=== PATIENT | female | born 1940 | race Caucasian/White ===

== ENCOUNTER 2018-08-29 01:37 | Inpatient (IN) ==
--- OUTSIDE RECORDS SUMMARY | 2018-08-29 01:40 | External Medical Summary | Continuity of Care Document ---
:1940 Author Name Mc Coats Address Unavailable Unavailable , Care Team Providers Name Role Phone Unavailable Unavailable Unavailable GEISE, W Unavailable Unavailable Problems Active medical history not documented Allergies and Adverse Reactions No Known Drug Allergies (Allergy) Medications Medications not documented Procedures Procedures not documented Immunizations Immunizations not documented Plan of Treatment Planned Observations Planned Goals not documented Results No Known Results Results not documented
[2018-08-29] MEDS ORDERED: ALBUT/IPRATROP 3MG/0.5MG NEB 3 ML VIAL NEB ONE (01:48)
[2018-08-29 02:49] LABS: Basophils # (auto) 0.05 K/uL (0-0.2); Basophils % (auto) 0.6 %; Eosinophils # (auto) 0.09 K/uL (0-0.5); Eosinophils % (auto) 1.1 %; Hematocrit (blood only) 40.2 % (37-47); Hemoglobin 13.7 g/dL (12.0-16.0); Immature Granulocytes # (auto) 0.02 K/uL (0.00-0.02); Immature Granulocytes % (auto) 0.2 %; Lymphocytes # (auto) 1.34 K/uL (1.2-3.4); Lymphocytes % (auto) 16.2 %; Mean Corpuscular Hgb Conc 34.1 g/dL (32-36); Mean Corpuscular Volume 89.3 fL (80-100); Mean Platelet Volume 10.8 fL (7.4-10.4); Monocytes # (auto) 0.67 K/uL (0.11-0.59); Monocytes % (auto) 8.1 %; Neutrophils # (auto) 6.12 K/uL (1.4-6.5); Neutrophils % (auto) 73.8 %; Platelet Count 219 K/uL (130-400); RDW Coefficient of Variation 12.6 % (11.5-14.5); RDW Standard Deviation 40.8 fL (36.4-46.3); White Blood Count 8.29 K/uL (4.8-10.8)
[2018-08-29 03:04] LABS: BUN Creatinine Ratio 38.4 (10-20); Blood Urea Nitrogen 20 mg/dl (7-18); Calcium 9.4 mg/dl (8.5-10.1); Carbon Dioxide 31 mmol/L (21-32); Chloride 96 mmol/L (98-107); Creatinine Clr Calc Pharmacy 72.5 ml/min; Est GFR (African American) 105.4; Est GFR (Non-African American) 90.9; Glucose 128 mg/dl (70-99); Magnesium 2.3 mg/dl (1.8-2.4); Potassium 3.6 mmol/L (3.5-5.1); Sodium 133 mmol/L (136-145)
[2018-08-29 03:09] LABS: NT Pro B Type Natriuretic Pept 57 pg/ml (0-1800); Troponin I < 0.015 ng/ml (0-0.045)
[2018-08-29] MEDS ORDERED: LEVOFLOXACIN/D5W 750 MG/150 ML BAG IV STA (03:13)
--- NOTE | 2018-08-29 05:46 | Emergency Department Note ---
Entered by Bigg Jiménez acting as a scribe for ED Provider Note Name: Leslie Mayo Age: 78, female Arrives Via: EMS Informant: Adalid, nurse CC: SOB HPI: The patient is a 78 year old female who presents to the emergency department with complaints of constant SOB beginning this morning. 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 She states that the patient became SOB while in bed this morning. She notes that the patient was suctioned before she went to bed, and she reports that it was thick. She reports that the patient does not use oxygen at home. Per nurse, the patient received a nebulizer treatment and albuterol treatment en route to the emergency department. Per niece, the patient has not had a fever, CP, and vomiting. She states that the patient does not have a history of pneumonia and she notes that the patient is not on any antibiotics. ROS: See above HPI for pertinent positives & negatives. A total of 10 systems reviewed and were otherwise negative. Past Medical History: ALS Past Surgical History: None Family History: No significant family history Social History: Nonverbal, lives with family Home Medications: Hydrochlorothiazide, levothyroxine, Zoloft Allergies: None Physical: Vitals: BP 129/62, Pulse 104 H, Resp 22, Temp 97.7 F, O2 Sat 94, Delivery Nasal Cannula, Flow Rate 3L/min Exam: GENERAL: Patient chronically unwell appearing and in moderate distress. EYES: No scleral icterus, unremarkable pupils. ENT: Mucous membranes moist, no nasal congestion. NECK: No masses appreciated, no meningismus, trachea is midline. RESPIRATORY: No wheeze, no rhonchi. Dyspneic/tachypneic with diffuse crackles in all lung matias. CARDIOVASCULAR: Regular rate and rhythm. No murmurs, rubs, gallops appreciated. GASTROINTESTINAL: Abdomen soft, non-tender, no peritonitis. Bowel sounds positive. No masses appreciated. Feeding tube in mid abdomen. BACK: No midline tenderness, no CVA tenderness EXTREMITIES: Normal motion all extremities, no cyanosis, no edema. NEUROLOGIC: Awake, answers questions via Ipad, no focal weakness, cranial nerves grossly intact. SKIN: No rash, no jaundice, no diaphoresis. ED Course: Prior Medical Record, Triage/Nursing Notes, Medications, Allergies reviewed by Me Ba: The patient was evaluated in room B5. A complete history and physical exam was performed. 0332: Upon reevaluation, the patient is stable. I discussed the findings and the treatment plan with the patient. She expresses agreement and understanding. I spoke with Dr. Rome of the [facility]. The patient will be evaluated for further management. 0345: I rechecked the patient. She still has junky breath sounds. She is requiring oxygen. Vital Signs: reviewed and remarkable for hypoxia, tachy Labs: Reviewed and remarkable for wnl Interventions: saline lock, duoneb x 1 hour, levaquin 750mg iv Imaging: Chest X-ray: X ray results are stated below per my interpretation: Chest: 1 view: Questionable retrocardiac infiltrate, no effusion, normal cardiac border. EKG: EKG results per my interpretation. Indication - SOB. Normal sinus, 89, no ectopy, questionable lateral ST depression, poor baseline due to tremor Consults: 033: I reviewed the patient's case with Dr. Rome - Hospitalist, [facility]. He will evaluate the patient for further management. Blood pressure: Normal. No Referral necessary Disposition: Hospitalization Differentials: Infections, reactive airway disease, COPD, pneumonia, pleural effusion, pulmonary edema, ARDS, pneumothorax, CHF, cardiac ischemia, cardiac tamponade, dysrhythmia, anemia, pulmonary embolism, musculoskeletal, gastrointestinal process, as well as others were entertained. Medical Decision Makin yr old female with ALS who appears to be high risk aspiration arrives with hypoxia, very poor lung sounds. Neb given to help with possible mucous plugging and I'll note breathing is much improved. Hold on steroids. CXR with possible retrocardiac infiltrate and will treat with abx despite normal wbc and no temp. She has no calf swelling and no history clots thus will hold on CT PE given other findings. Sats still requiring NC O2. She will need to come in for further management. Impression: Hypoxia, aspiration pneumonia Tulio Cronin MD The scribe's documentation has been prepared under my direction and personally reviewed by me in its entirety. I confirm that the note above accurately re flects all work, treatment, procedures, and medical decision making performed by me. Impression & Plan Hypoxia, Aspiration pneumonia Past Med/Surg History Medical History ALS (amyotrophic lateral sclerosis) Family History Other No significant family history Social History Communication Ability: Unable Current Living Situation: Family Feels Safe at Home: Yes Smoking Status: Former smoker Results & Data Vital Signs Vital Signs - 24 hr 08/29/18 01:47 08/29/18 02:01 08/29/18 02:42 Temperature 36.5 C 36.5 C Temperature Source Oral Oral Sepsis Recent Fever Within 48 Hours No Sepsis New/Unexplained Change in Mental Status No Sepsis Action Taken by Nursing No Action Required Pulse Rate 89 Pulse Rate [Right Finger] 91 H 99 H Pulse Rhythm Regular Pulse Strength Normal Respiratory Rate 24 24 22 Respiratory Effort / Characteristics Spontaneous Grunting Labored Short of Breath Spontaneous Short of Breath Respiratory Depth Normal Respiratory Pattern Grunting Blood Pressure 182/112 H Blood Pressure [Right Arm] 156/61 H Blood Pressure Mean 135 Blood Pressure Mean [Right Arm] 92 Blood Pressure Position [Right Arm] Sitting Pulse Oximetry 93 90 96 Oxygen Delivery Method Nasal Cannula Nasal Cannula Nebulizer Oxygen Flow Rate 3 3 08/29/18 03:33 08/29/18 04:00 08/29/18 05:01 Temperature 36.7 C Temperature Source Oral Sepsis Recent Fever Within 48 Hours Sepsis New/Unexplained Change in Mental Status Sepsis Action Taken by Nursing Pulse Rate Pulse Rate [Right Finger] 104 H 118 H 115 H Pulse Rhythm Pulse Strength Respiratory Rate 22 25 H 24 Respiratory Effort / Characteristics Respiratory Depth Respiratory Pattern Blood Pressure Blood Pressure [Right Arm] 129/62 138/75 122/57 L Blood Pressure Mean Blood Pressure Mean [Right Arm] 84 96 78 Blood Pressure Position [Right Arm] Sitting Sitting Pulse Oximetry 94 93 96 Oxygen Delivery Method Nasal Cannula Nasal Cannula Nasal Cannula Oxygen Flow Rate 3 3 3 Home Medications Current Medication List: was personally reviewed by me Laboratory Data Attestation: I reviewed the patient's lab results. Result diagrams: 08/29/18 02:37 08/29/18 02:37 Lab Results 08/29/18 08/29/18 08/29/18 Range/Units 02:37 02:37 02:37 WBC 8.29 (4.8-10.8) K/uL RBC 4.50 (4.2-5.4) M/uL Hgb 13.7 (12.0-16.0) g/dL Hct 40.2 (37-47) % MCV 89.3 (80-100) fL MCH 30.4 (25-34) pg MCHC 34.1 (32-36) g/dL RDW Std Deviation 40.8 (36.4-46.3) fL RDW Coeff of Gato 12.6 (11.5-14.5) % Plt Count 219 (130-400) K/uL MPV 10.8 H (7.4-10.4) fL Immature Gran % (Auto) 0.2 % Neut % (Auto) 73.8 % Lymph % (Auto) 16.2 % [place] % (Auto) 8.1 % Eos % (Auto) 1.1 % Baso % (Auto) 0.6 % Immature Gran # (Auto) 0.02 (0.00-0.02) K/uL Neut # (Auto) 6.12 (1.4-6.5) K/uL Lymph # (Auto) 1.34 (1.2-3.4) K/uL [place] # (Auto) 0.67 H (0.11-0.59) K/uL Eos # (Auto) 0.09 (0-0.5) K/uL Baso # (Auto) 0.05 (0-0.2) K/uL Sodium 133 L (136-145) mmol/L Potassium 3.6 (3.5-5.1) mmol/L Chloride 96 L (98-107) mmol/L Carbon Dioxide 31 (21-32) mmol/L Anion Gap 6.0 (3-11) BUN 20 H (7-18) mg/dl Creatinine 0.53 L (0.6-1.2) mg/dl Est Cr Clr Drug Dosing 72.5 ml/min Est GFR ( Amer) 105.4 Est GFR (Non-Af Amer) 90.9 BUN/Creatinine Ratio 38.4 H (10-20) Glucose 128 H (70-99) mg/dl Lactate 1.0 (0.4-2.0) mmol/L Calcium 9.4 (8.5-10.1) mg/dl Magnesium 2.3 (1.8-2.4) mg/dl Troponin I < 0.015 (0-0.045) ng/ml NT-Pro-B Natriuret Pep 57 (0-1800) pg/ml Administered Medications Discontinued Medications Albuterol (Duoneb) 12 ml NEB ONE ONE Stop: 08/29/18 01:49 Last Admin: 08/29/18 01:58 Dose: 12 ml Documented by: [id number] Levofloxacin/Dextrose (Levaquin/D5w) 750 mg in 150 mls @ 100 mls/hr IV NOW STA Stop: 08/29/18 04:42 Last Infusion: 08/29/18 05:02 Dose: 0 mls/hr Documented by: [id number] Admin: 08/29/18 03:29 Dose: 100 mls/hr Documented by: [id number] Discharge Plan Visit Data Chief Complaint: Shortness of Breath/Dyspnea Stated Complaint: SHORT OF BREATH ED Provider: Tulio Cronin Discharge Problem: Hypoxia, Aspiration pneumonia Patient Disposition: Being Evaluated by Hospitalist Forms Stand Alone Forms: My [facility] Prescriptions Prescriptions: No Action hydrochlorothiazide 25 mg Tablet 25 mg feeding tube DAILY RF: 0 Nutren 1.5 0.07 gram-1.5 kcal/mL Liquid 1 ea feeding tube UD RF: 0 Zoloft 25 mg 25 mg PEG DAILY RF: 0 levothyroxine 137 mcg 137 mcg PEG DAILY RF: 0 Referrals Referrals: Shala Porras [place] [Primary Care Provider] - Discharge Problem: Aspiration pneumonia Qualifiers: Aspiration pneumonia type: unspecified Laterality: left Lung location: lower lobe of lung Qualified Code(s): J69.0 - Pneumonitis due to inhalation of food and vomit The scribe's documentation has been prepared under my direction and personally reviewed by me in its entirety. I confirm that the note above accurately reflects all work, treatment, procedures, and medical decision making performed by me.
--- NOTE | 2018-08-29 06:33 | XRay Report ---
XR chest 1V portable CLINICAL HISTORY: Shortness of breath COMPARISON STUDY: 01/29/2012 FINDINGS: The heart is normal in size. There is subtle elevation of the interstitium. Likely diagnost ic considerations include subtle interstitial edema versus interstitial inflammatory process. Clinica l and radiographic follow-up is recommended. There are no significant pleural effusions. There is no lobar consolidation.[ IMPRESSION: Subtle elevation interstitium. Likely diagnostic considerations include subtle interstiti al edema versus an interstitial inflammatory process. Clinical and radiographic follow-up is recommen ded. Electronically signed by: Jimenez Garvin M.D. 08/29/2018 6:32 AM
[2018-08-29] MEDS ORDERED: LEVALBUTEROL 1.25MG/0.5ML NEB INH PRN (06:51)
[2018-08-29] MEDS ORDERED: SODIUM CHLORIDE 0.9% 1000ML 1,000 ML IV SCH (06:51)
[2018-08-29] MEDS ORDERED: IPRATROPIUM BROMIDE NEB SOLN 0.02% 2.5 ML VIAL INH PRN (06:51)
[2018-08-29] MEDS ORDERED: ACETAMINOPHEN SOL 650 MG/20.3 ML UDC PEG PRN (06:51)
[2018-08-29] MEDS ORDERED: XOPENEX/ATROVENT 1.25mg/0.5MG NEB COMBO NEB PRN (06:51)
[2018-08-29] MEDS ORDERED: NITROGLYCERIN SL 0.4 MG/TAB TAB SL PRN (06:51)
[2018-08-29] MEDS ORDERED: ONDANSETRON INJ 2 MG/ML 2 ML VIAL IV PRN (06:51)
[2018-08-29] MEDS ORDERED: CONSULT PHARMACY STA (06:51)
[2018-08-29] MEDS ORDERED: AMPICILLIN/SULBACTAM CONSULT ACTIVE PRN (06:54)
[2018-08-29 07:54] LABS: Prothrombin Time 9.9 Seconds (9.0-12.0)
[2018-08-29] MEDS ORDERED: OPTIRAY 320 125ml IV PRN (08:22)
--- NOTE | 2018-08-29 08:38 | CT Scan Report ---
CT angio chest PE protocol CT DOSE: 329.81 mGy.cm HISTORY: 78 years-old Female with rule out PE and mucous plugging. Acute shortness of breath TECHNIQUE: Multiple CTA images of the chest were obtained after the intravenous administration of 118 ml Optiray 320. Coronal and sagittal MIPS were obtained from the axial data set and were submitted for review. All measurements were obtained according to NASCET criteria. A dose lowering technique w as utilized adhering to the principles of ALARA. COMPARISON: Chest radiograph 08/29/2018 FINDINGS: CTA: Mild multichamber cardiac enlargement. No pericardial effusion. Coronary arterial calcifications are noted. Calcifications of the aortic annulus. No thoracic aortic aneurysm or dissection. Moderate mixe d plaque formation of the thoracic aorta with patency of the imaged great vessels. The pulmonary shady rial tree is opacified to level of the segmental branches. The distal segmental and subsegmental bran ches are not well seen secondary to respiratory motion artifact. No focal filling defects identified to suggest pulmonary thromboembolic disease. CT CHEST: No focal thyroid nodule or adenopathy by CT size criteria. No definite pneumothorax or pleural effusi on. Biapical pleural-parenchymal scarring. Subsegmental consolidation of the lateral segment right mi ddle lobe, inferior segment lingula and posterior basal segment left lower lobe and to a lesser exten t within the medial basal segment of the right lower lobe. Respiratory motion artifact limits evaluat ion of the lung parenchyma. No overt pulmonary edema identified. Linear subsegmental atelectasis of t he superior segment lingula and superior segment right lower lobe. There are a few scattered 2-3 mm s olid nodules noted bilaterally which are likely benign. Mild bilateral mucus plugging. Central airway s appear to be patent. Small hiatal hernia. Mild thickening of the adrenal glands suggestive of hyperplasia. No acute proces s of the imaged upper abdomen. Soft tissues are unremarkable. Bones appear to be intact. Degenerative changes of the shoulders and spine. IMPRESSION: 1. Study limited secondary to respiratory motion. No definite evidence of pulmonary thromboembolic di sease. 2. Mild mucous plugging with bibasilar subsegmental consolidation suggestive of probable atelectasis. Pneumonia considered less likely. Correlate clinically. 3. Mild cardiomegaly without overt pulmonary edema or pleural effusion. 4. Small hiatal hernia. The above report was generated using voice recognition software. It may contain grammatical, syntax o r spelling errors. Electronically signed by: Greg Wagoner M.D. 08/29/2018 8:37 AM
[2018-08-29] MEDS: SERTRALINE HCL 50 MG TABLET PEG SCH (08:39)
[2018-08-29] MEDS: hydroCHLOROthiazide 25 MG TAB PEG SCH (08:39)
[2018-08-29] MEDS: LEVOTHYROXINE SODIUM 137 MCG TABLET PO SCH (08:39)
[2018-08-29] MEDS: AMPICILLIN/SULBACTAM SOD 1,500 MG in 0.9 % SODIUM CHLORIDE 100 ML IV SCH ×2 (08:40→13:54)
[2018-08-29] MEDS ORDERED: IPRATROPIUM BROMIDE NEB SOLN 0.02% 2.5 ML VIAL INH SCH (09:00)
[2018-08-29] MEDS ORDERED: XOPENEX/ATROVENT 1.25mg/0.5MG NEB COMBO NEB SCH (09:00)
[2018-08-29] MEDS ORDERED: LEVALBUTEROL 1.25MG/0.5ML NEB INH SCH (09:00)
--- NOTE | 2018-08-29 09:01 | History and Physical Report ---
DATE OF ADMISSION: 08/29/2018 CHIEF COMPLAINT: Shortness of breath. HISTORY OF PRESENT ILLNESS: This is a 78-year-old female, [facility] resident, history of ALS, diagnosed about a year ago, status post PEG tube, nonverbal, takes all the medications and tube feeding via the PEG tube, history of hypothyroidism, history of depression, ambulatory dysfunction, presents with shortness of breath. The patient was brought in because she was short of breath. The patient does suction herself everyday. She is getting a lot of suction lately. She was worried about that she might have had some obstruction in the lungs. She is nonverbal, but she uses the IPad for communication and her niece is in the room who is the power of criminal defense attorney. The patient received an hour-long neb treatment in the ER and she is saturating okay on 3 liters. She does not use oxygen at home. Denies any fever, chills. No headache, no dizziness, no blurred visions, no earache, no sore throat, no nausea, no abdominal pain. Normal bowel and bladder movements. No swelling in the legs. No rash. Ambulates with a walker. In the ER, later when she was suctioned, there was some blood in the suctions, but her mouth cavity looked okay. Hemodynamics were stable. ALLERGIES: COREG. PAST MEDICAL HISTORY: As mentioned above. PAST SURGICAL HISTORY: Carpal tunnel surgery and finger surgery, right ankle surgery, partial removal of the eye fluid in the left side, cataract surgery bilaterally, reversed upper eyelid bilateral, laparoscopic hernia repair, status post PEG tube placement. MEDICATIONS: The patient is on hydrochlorothiazide 25 mg p.o. daily, Zoloft 25 mg p.o. daily, levothyroxine 137 mcg daily. Once in a while, she uses a scopolamine patch. Hydrochlorothiazide 25 mg p.o. daily. FAMILY HISTORY: Significant for brother had cancer, diabetes. Mother has diabetes, heart disorder, hypertension. Father had stroke, hypertension. Sister has diabetes. SOCIAL HISTORY: Currently living at [facility], former smoker, quit in 2007, smoked average quarter pack a day for 15 years. No alcohol use, no drug use. REVIEW OF SYMPTOMS: As per HPI. Rest of review of systems is negative. PHYSICAL EXAMINATION: GENERAL: The patient is older and frail, not in acute distress. VITAL SIGNS: Temperature 36.5, pulse 100, respiratory rate 20, blood pressure 113/75, oxygen 93% on 3 liters. HEENT: No pallor, no icterus. Pupils equal, round, and reactive to light. Oral mucosa dry. NECK: No JVD, no neck masses, no carotid bruits. CARDIOVASCULAR: S1, S2 heard. Tachycardia. No murmur, no gallop. RESPIRATORY SYSTEM: Normal AP diameter. No accessory muscle use. No wheezing, no crackles. ABDOMEN: Soft, bowel sounds present. Nontender. No distention. PEG tube site clean. CENTRAL NERVOUS SYSTEM: Nonverbal. Moves extremities. Alert and awake, and obeys simple commands. EXTREMITIES: No edema, no erythema. LABORATORIES: WBC 8.2, hemoglobin 13.7, hematocrit 40.2, platelets 219. Sodium 133, potassium 3.6, chloride 96, bicarbonate 31, BUN 20, creatinine 0.5, serum glucose 128. Lactic acid 1, calcium 9.4, magnesium 2.3. Troponin less than 0.015. BNP 57. Chest x-ray: No acute findings seen. EKG, poor quality, but normal sinus rhythm, rate of 89, nonspecific ST-T abnormalities seen. ASSESSMENT AND PLAN: This is a 78-year-old female who presents with shortness of breath, possible aspiration versus mucus plugging. 1. Shortness of breath, hypoxemic, requiring oxygen. Does not need oxygen at home. Chest x-ray unremarkable. Exam looks benign, but the patient has lot of secretions. questionable aspiration( On tube feeds) versus mild mucus plugging. We will get a CT of the chest. Also blood in secretions frequently, we will follow the CAT scan. Empirically started on IV Unasyn and doxycycline. Follow the cultures. We will also consult pulmonary for further recommendations. 2. History of ALS, dysphagia, nonverbal, muscle weakness, Diagnosed about a year ago. Ambulates with help of a walker. Status post PEG tube. We will consult the nutrition to help with PEG tube feedings. 3. Hypothyroidism, on Synthroid. 4. Depression, on Zoloft. 5. Hypertension, on hydrochlorothiazide. 6. Deep venous thrombosis prophylaxis, SCDs for now. 7. Disposition: Admit to med/surg tele. Level 1 code status. The patient does not want CPR or shocks, but okay with intubation if there is a chance of recovery. PT and OT prior to discharge. Social Service to help with discharge planning. The patient is [facility] resident. [facility]
[2018-08-29 09:31] LABS: Appearance Urine Clear (Clear); Bilirubin Urine Negative (Negative); Blood Urine Negative (Negative); Color Urine Yellow; Glucose Urine UA Negative (Negative); Ketones Urine Negative (Negative); Leukocyte Esterase Urine Negative (Negative); Nitrite Urine Negative (Negative); Protein Urine Negative (Negative); Specific Gravity Urine > 1.045 (1.000-1.030); Urobilinogen Urine Negative (Negative)
[2018-08-29] MEDS: DOXYCYCLINE HYCLATE 100 MG in DEXTROSE 5% 100 ML IV SCH ×2 (09:57→20:58)
[2018-08-29] MEDS: HEPARIN SOD 5,000 UNIT/0.5 ML VIAL SQ SCH ×2 (10:04→21:00)
[2018-08-29] MEDS ORDERED: NUTREN PEG SCH (12:00)
[2018-08-29] MEDS: NUTREN PEG SCH ×3 (12:18→21:00)
--- NOTE | 2018-08-29 13:18 | Pulmonary Consultation ---
Date of Consultation August 29, 2018 Assessment & Plan (1) ALS (amyotrophic lateral sclerosis): Present on Admission?: Yes (2) Atelectasis: The CAT scan of the chest showed atelectatic changes in the right middle lobe and lingula. One cannot entirely exclude pneumonia but it looks more like atelectasis. The patient obviously has difficulty clearing secretions. This is significantly related to her underlying neuromuscular disease. I believe she would benefit from nebulizer treatment 3-4 times per day. In light of the fact her heart rates have been mildly elevated, suggest using levo albuterol 0.63 dosage. Would also suggest using guaifenesin liquid to try and thin her secretions somewhat. She is on antibiotic therapy in the form of ampicillin sulbactam and doxycycline. I believe this is reasonable as we cannot entirely exclude an infection. The patient indicated she does not want intubation or CPR. It is expected that her respiratory symptoms may well progress in the near future due to the progression of her disease itself. Present on Admission?: Yes History of Present Illness Attending Physician: Segun Whalen MD History of Present Illness Pulmonary consultation is requested regarding shortness of breath. She is a 78-year-old female with a history of ALS. This was diagnosed in November 2017, but the patient had some symptoms for about 2 years prior to this until the diagnosis was made she currently lives in [facility]. The patient chronic ally has mild shortness of breath but it became much worse she states late last evening it seemed to be quite abrupt to her. She felt like she had mucus that she could not clear. She felt that it was her saliva. The mucus she does get out she states is thick. At [facility] she has a Yankauer catheter that she utilizes herself to suction mucus. She was unable to get the mucus out that was bothering her. Her mucus is beige in color. She is not coughed up any blood. Apparently nursing was unable to clear her as well. She was brought to the emergency room and a number of interventions were undertaken. She was given a nebulizer treatment and a dose of levofloxacin 750 mg. She states she is feeling somewhat better but still short of breath. She has had no chest pains. The patient's ALS mainly has affected the bulbar area. She has been unable to speak or swallow. She has a PEG tube in place since November 2017. She utilizes an iPad type of device to communicate with people. She is weaker in the upper extremities than she is in the lower extremities. She is able to walk somewhat still. It could well be that she has marked difficulty swallowing her own saliva. This may be part of her problem. She denies any nausea or vomiting. She has not had any problems with her feedings that she is aware of. Allergies Allergy/AdvReac Type Severity Reaction Status Date / Time No Known Allergies Allergy Unverified 08/29/18 03:18 Home Medications Home Medications Medication Instructions Recorded Confirmed Type Zoloft 25 mg PEG DAILY 08/29/18 08/29/18 History hydrochlorothiazide 25 mg FEEDING TUBE DAILY 08/29/18 08/29/18 History levothyroxine 137 mcg PEG DAILY 08/29/18 08/29/18 History nutritional supplements [Nutren 1 ea FEEDING TUBE UD 08/29/18 08/29/18 History 1.5] Patient History Medical History Hypothyroidism Hypertension ALS (amyotrophic lateral sclerosis) Surgical History PEG (percutaneous endoscopic gastrostomy) status PEG tube in place Ankle fracture Cataract Bilateral surgery with lens implant H/O hernia repair History of tonsillectomy and adenoidectomy Family History Other No significant family history Social History Preferred Language: Polish Communication Ability: Effective Communication Ability Comment: Patient nonverbal but cognitively intact. Communication Tools: IPad Beliefs That Will Affect Care: None Current Living Situation: Personal Care Facility Current Living Situation Comment: [facility] Other Information That Helps Us Care for You: No Feels Safe at Home: Yes Safety Concerns: Feels Safe At This Time Smoking Status: Former smoker Tobacco Type: cigarettes Age Started Using Tobacco: 26 Age Quit Using Tobacco: 68 Cigarettes Per Day: 3 cigarettes/day Number of Years Since Quit: 10 Hx Alcohol Use: Yes (A few beers per week) Hx Substance Use: No Review of Systems Review of Systems: All systems reviewed & are unremarkable except as noted in HPI & below Physical Exam Physical Exam: The patient is a 78-year-old female who was cooperative alert, and oriented. She was in no distress. Patient is nonverbal. Weight is 59.5 kg per Eye exam showed implants bilaterally. Pupils were reactive to light. Nares were clear. Nasal cannula oxygen in place. Mouth exam shows dry mucous m embranes. Pharynx is a Mallampati grade 1. Palpation of the neck reveals no lymph nodes or masses. The cardiac rate was increased to 110/min. The rhythm was regular. Blood pressure 123/73. The chest was of normal development but diminished excursions. Respiratory rate was 18 breaths/min. There were some accessory muscles utilized when the patient was requested to take deep breaths. The breath sounds are diminished at both lung bases. Oxygen saturation was 98% on 3 L nasal cannula. Abdomen is soft. Bowel sounds normal. There is a PEG tube in place. There was no tenderness to palpation, masses, or organomegaly. Extremities showed no cyanosis clubbing or edema. Results & Data Vital Signs (Past 12 Hours) Vital Signs Temp Pulse Pulse Resp BP BP Pulse Ox 08/29/18 11:00 36.4 C L 109 H 18 123/73 98 08/29/18 08:00 113 H 08/29/18 07:39 103 H 16 98 08/29/18 07:00 36.2 C L 115 H 18 110/69 95 08/29/18 06:48 36.0 C L 112 H 20 137/56 L 96 08/29/18 06:24 109 H 25 H 117/54 L 97 08/29/18 05:30 106 H 21 123/52 L 96 08/29/18 05:01 36.7 C 115 H 24 122/57 L 96 08/29/18 04:00 118 H 25 H 138/75 93 08/29/18 03:33 104 H 22 129/62 94 08/29/18 02:42 36.5 C 99 H 22 156/61 H 96 08/29/18 02:01 91 H 24 90 08/29/18 01:47 36.5 C 89 24 182/112 H 93 Laboratory Results Abnormal lab results 08/29/18 08/29/18 08/29/18 Range/Units 02:37 02:37 09:20 MPV 10.8 H (7.4-10.4) fL [place] # (Auto) 0.67 H (0.11-0.59) K/uL Sodium 133 L (136-145) mmol/L Chloride 96 L (98-107) mmol/L BUN 20 H (7-18) mg/dl Creatinine 0.53 L (0.6-1.2) mg/dl BUN/Creatinine Ratio 38.4 H (10-20) Glucose 128 H (70-99) mg/dl Ur Specific [place] > 1.045 H (1.000-1.030) 08/29/18 02:37 08/29/18 02:37 Pro time is 9.9 with INR 1.0 Diagnostic Findings XR chest 1V portable CLINICAL HISTORY: Shortness of breath COMPARISON STUDY: 01/29/2012 FINDINGS: The heart is normal in size. There is subtle elevation of the interstitium. Likely diagnostic considerations include subtle interstitial edema versus interstitial inflammatory process. Clinical and radiographic follow-up is recommended. There are no significant pleural effusions. There is no lobar consolidation.[ IMPRESSION: Subtle elevation interstitium. Likely diagnostic considerations include subtle interstitial edema versus an interstitial inflammatory process. Clinical and radiographic follow-up is recommended. Electronically signed by: Jimenez Garvin M.D. 08/29/2018 6:[address] angio chest PE protocol CT DOSE: 329.81 mGy.cm HISTORY: 78 years-old Female with rule out PE and mucous plugging. Acute shortness of breath TECHNIQUE: Multiple CTA images of the chest were obtained after the intravenous administration of 118 ml Optiray 320. Coronal and sagittal MIPS were obtained from the axial data set and were submitted for review. All measurements were obtained according to NASCET criteria. A dose lowering technique was utilized adhering to the principles of ALARA. COMPARISON: Chest radiograph 08/29/2018 FINDINGS: CTA: Mild multichamber cardiac enlargement. No pericardial effusion. Coronary arterial calcifications are noted. Calcifications of the aortic annulus. No thoracic aortic aneurysm or dissection. Moderate mixed plaque formation of the t horacic aorta with patency of the imaged great vessels. The pulmonary arterial tree is opacified to level of the segmental branches. The distal segmental and subsegmental branches are not well seen secondary to respiratory motion artifact. No focal filling defects identified to suggest pulmonary thr omboembolic disease. CT CHEST: No focal thyroid nodule or adenopathy by CT size criteria. No definite pneumothorax or pleural effusion. Biapical pleural-parenchymal scarring. Subsegmental consolidation of the lateral segment right middle lobe, inferior segment lingula and posterior basal segment left lower lobe and to a lesser extent within the medial basal segment of the right lower lobe. Respiratory motion artifact limits evaluation of the lung parenchyma. No overt pulmonary edema identified. Linear subsegmental atelectasis of the superior segment lingula and superior segment right lower lobe. There are a few scattered 2-3 mm solid nodules noted bilaterally which are likely benign. Mild bilateral mucus plugging. Central airways appear to be patent. Small hiatal hernia. Mild thickening of the adrenal glands suggestive of hyperplasia. No acute process of the imaged upper abdomen. Soft tissues are unremarkable. Bones appear to be intact. Degenerative changes of the shoulders and spine. IMPRESSION: 1. Study limited secondary to respiratory motion. No definite evidence of pulmon oksana thromboembolic disease. 2. Mild mucous plugging with bibasilar subsegmental consolidation suggestive of probable atelectasis. Pneumonia considered less likely. Correlate clinically. 3. Mild cardiomegaly without overt pulmonary edema or pleural effusion. 4. Small hiatal hernia. The above report was generated using voice recognition software. It may contain grammatical, syntax or spelling errors. Electronically signed by: Greg Wagoner M.D. 08/29/2018 8:37 AM
[2018-08-29] MEDS: LEVALBUTEROL HCL 0.63 MG/3 ML NEB NEB SCH ×2 (14:09→19:42)
--- NOTE | 2018-08-29 18:12 | Hospitalist Progress Note ---
Date of Service August 29, 2018 Assessment & Plan (1) ALS (amyotrophic lateral sclerosis): -dysphagia, nonverbal, communicates with hand gestures and computer tablet device -nutrition via PEG tube -muscle weakness, at personal longterm she ambulates with help of a walker Shortness of breath and hypoxemic on admission secondary to ALS and problems of clearing oral secretions Mild mucous plugging with bibasilar subsegmental consolidation suggestive of probable atelectasis -initially on nasal cannula oxygen on admission -supplemental oxygen down titrated off to room -As per pulmonary service, CT scan of the chest showed atelectatic changes in the right middle lobe and lingula; One cannot entirely exclude pneumonia but it looks more like atelectasis. -will switch patient from ampicillin sulbactam and doxycycline to ceftriaxone and doxycycline -follow admission blood cultures -Levoalbuterol 0.63 q6 hours as per pulmonary service to help as bronchodilator and minimize tachycardia -will try flutter valve to help with mucous plugging -patient uses Yankauer suction on her own, will have respiratory/nursing staff assist her with suctioning -chest discomfort likely due to oral secretions in throat, will repeat troponin and EKG but unlikely that patient is having cardiac event Hypertension -on hydrochlorothiazide. Hypothyroidism -on Synthroid. Depression - on Zoloft. Deep venous thrombosis prophylaxis, SCDs for now. Code Status: Do Not Resuscitate/Do Not Intubate as per patient and her niece Brenda [phone] Subjective I have seen and examined the patient several times today. Patient's tachycardia improved over course of the day. No excessive secretions coming out of mouth. Patient did indicate feel some discomfort in her throat at times and some chest discomfort. she expresses this with hand gestures and writing on computer tablet. she does not appear to be in acute distress Physical Exam Constitutional: WD/WN, vitals as above Eyes: PERRL, conjunctivae normal, anicteric sclerae ENMT: external ear and nose normal, oropharynx normal Cardiovascular: Rate/Rhythm: regular rate and regular rhythm Gastrointestinal (Abdomen): normal bowel sounds, soft, nontender, no hepatosplenomegaly (tube feeding) Musculoskeletal: Head/Neck/Chest: normocephalic and head atraumatic Neurologic: patient able to use hands to type on tablet, no facial asymetry Psychiatric: Orientation: alert and cooperative Results & Data Vital Signs (Past 12 Hours) Vital Signs Temp Pulse Pulse Resp BP BP Pulse Ox 08/29/18 17:37 99 H 126/56 L 92 08/29/18 14:09 92 H 18 92 08/29/18 13:49 91 08/29/18 11:00 36.4 C L 109 H 18 123/73 98 08/29/18 08:00 113 H 08/29/18 07:39 103 H 16 98 08/29/18 07:00 36.2 C L 115 H 18 110/69 95 08/29/18 06:48 36.0 C L 112 H 20 137/56 L 96 08/29/18 06:24 109 H 25 H 117/54 L 97
[2018-08-29 18:42] LABS: Alanine Aminotransferase 26 U/L (12-78); Albumin Level 3.4 gm/dl (3.4-5.0); Aspartate Aminotransferase 21 U/L (15-37); BUN Creatinine Ratio 24.9 (10-20); Blood Urea Nitrogen 17 mg/dl (7-18); Calcium 9.4 mg/dl (8.5-10.1); Carbon Dioxide 29 mmol/L (21-32); Chloride 95 mmol/L (98-107); Creatinine Clr Calc Pharmacy 57.3 ml/min; Est GFR (African American) 97.6; Est GFR (Non-African American) 84.2; Glucose 142 mg/dl (70-99); Potassium 3.6 mmol/L (3.5-5.1); Sodium 132 mmol/L (136-145)
[2018-08-29 18:47] LABS: Alkaline Phosphatase 93 U/L (45-117); Bilirubin,Total 0.5 mg/dl (0.2-1); Globulin 3.6 gm/dl (2.5-4.0); Troponin I < 0.015 ng/ml (0-0.045)
[2018-08-29] MEDS ORDERED: cefTRIAXone SODIUM 1,000 MG in DEXTROSE 5% 50 ML IV ONE (19:00)
[2018-08-29] MEDS ORDERED: AMPICILLIN/SULBACTAM SOD 3,000 MG in 0.9 % SODIUM CHLORIDE 100 ML IV SCH (20:00)
[2018-08-30] MEDS: LEVALBUTEROL HCL 0.63 MG/3 ML NEB NEB SCH ×4 (02:09→19:52)
[2018-08-30 05:50] LABS: Basophils # (auto) 0.03 K/uL (0-0.2); Basophils % (auto) 0.1 %; Eosinophils # (auto) 0.02 K/uL (0-0.5); Eosinophils % (auto) 0.1 %; Hematocrit (blood only) 38.4 % (37-47); Hemoglobin 12.9 g/dL (12.0-16.0); Immature Granulocytes # (auto) 0.09 K/uL (0.00-0.02); Immature Granulocytes % (auto) 0.4 %; Lymphocytes # (auto) 1.09 K/uL (1.2-3.4); Lymphocytes % (auto) 5.2 %; Mean Corpuscular Hgb Conc 33.6 g/dL (32-36); Mean Corpuscular Volume 90.1 fL (80-100); Mean Platelet Volume 10.7 fL (7.4-10.4); Monocytes # (auto) 1.61 K/uL (0.11-0.59); Monocytes % (auto) 7.6 %; Neutrophils # (auto) 18.32 K/uL (1.4-6.5); Neutrophils % (auto) 86.6 %; Platelet Count 192 K/uL (130-400); RDW Standard Deviation 42.3 fL (36.4-46.3); Red Blood Count 4.26 M/uL (4.2-5.4); White Blood Count 21.16 K/uL (4.8-10.8)
[2018-08-30 06:15] LABS: BUN Creatinine Ratio 27.6 (10-20); Calcium 9.2 mg/dl (8.5-10.1); Creatinine Clr Calc Pharmacy 73.9 ml/min; Est GFR (African American) 106.1; Est GFR (Non-African American) 91.5; Magnesium 2.3 mg/dl (1.8-2.4); Potassium 3.6 mmol/L (3.5-5.1)
[2018-08-30] MEDS: cefTRIAXone SODIUM 1,000 MG in DEXTROSE 5% 50 ML IV SCH (07:58)
[2018-08-30] MEDS: SERTRALINE HCL 50 MG TABLET PEG SCH (08:03)
[2018-08-30] MEDS: LEVOTHYROXINE SODIUM 137 MCG TABLET PO SCH (08:04)
[2018-08-30] MEDS: NUTREN PEG SCH ×4 (08:05→20:50)
[2018-08-30] MEDS: HEPARIN SOD 5,000 UNIT/0.5 ML VIAL SQ SCH ×2 (08:06→20:50)
[2018-08-30] MEDS: hydroCHLOROthiazide 25 MG TAB PEG SCH (08:09)
[2018-08-30] MEDS: DOXYCYCLINE HYCLATE 100 MG in DEXTROSE 5% 100 ML IV SCH ×2 (09:08→20:45)
--- NOTE | 2018-08-30 11:11 | Pulmonology Progress Note ---
Date of Service August 30, 2018 Assessment & Plan (1) Atelectasis: The patient is clinically improved. Would continue with the antibiotic and nebulizer treatments as present. She ultimately will need a chest x-ray in a day or 2. Present on Admission?: Yes (2) ALS (amyotrophic lateral sclerosis): Present on Admission?: Yes Subjective The patient is feeling less short of breath today. She feels she is moving her air better. She is breathing easier. She remains weak. She states her breathing is not as good as usual but it is better than when she came in and better than yesterday. The suctioning secretions are noted to be bloody. The patient believes this is because nurses are suctioning her through the nose though she has not seen definite nasal blood her nurse was not available for me to confirm this history. Review of Systems Review of Systems: The patient denies chest pains chills fevers or sweats. She has had no nausea vomiting diarrhea constipation. Physical Exam Physical Exam: Patient is a 78-year-old female who was cooperative alert and oriented. She was nonverbal due to ALS. Temperature is 36.8. She has had no documented fevers. Cardiac rate is 90/min. Rhythm is regular. Blood pressure 124/60. Lung matias revealed mild rhonchi posteriorly bilaterally. Breath sounds generally diminished. There was no respiratory distress. Respiratory rate 22 breaths/min. Saturation 91% on room air. Abdominal exam again shows PEG tube in place. Abdomen soft. There is no cyanosis clubbing or edema. Results & Data Vital Signs (Past 12 Hours) Vital Signs Temp Pulse Pulse Resp BP Pulse Ox 08/30/18 07:47 90 22 91 08/30/18 07:14 90 08/30/18 04:00 36.8 C 91 H 20 124/60 92 08/30/18 02:09 94 H 24 92 08/30/18 01:26 92 H 08/29/18 23:56 36.5 C 99 H 18 145/61 H 93 Laboratory Results 08/30/18 05:40 08/30/18 05:40 Abnormal lab results 08/29/18 08/30/18 08/30/18 Range/Units 18:06 05:40 05:40 WBC 21.16 H (4.8-10.8) K/uL MPV 10.7 H (7.4-10.4) fL Immature Gran # (Auto) 0.09 H (0.00-0.02) K/uL Neut # (Auto) 18.32 H (1.4-6.5) K/uL Lymph # (Auto) 1.09 L (1.2-3.4) K/uL [place] # (Auto) 1.61 H (0.11-0.59) K/uL Sodium 132 L 131 L (136-145) mmol/L Chloride 95 L 96 L (98-107) mmol/L Creatinine 0.52 L (0.6-1.2) mg/dl BUN/Creatinine Ratio 24.9 H 27.6 H (10-20) Glucose 142 H 110 H (70-99) mg/dl Diagnostics DATE TYPE STATUS AUTHOR Source Blood Procedure/Result Aerobic Blood Culture - Preliminary No growth in Aerobic bottle after 24 hours. Anaerobic Blood Culture - Preliminary No growth in Anaerobic bottle after 24 hours. Source Blood Procedure/Result Aerobic Blood Culture - Preliminary No growth in Aerobic bottle after 24 hours. Anaerobic Blood Culture - Preliminary No growth in Anaerobic bottle after 24 hours. Jennifer Erwin 78, F0 1940 ADM IN, 2N N280 -1 5ft 1in 59.5kg BSA: 1.60m BMI: 24.8kg/m Search Chart Today 07:47 *from earlier documentation ONSET NF - Not included in interaction checking HISTORY & PHYSICAL 08/29/18 04:28 GENERAL 08/29/18 18:09 RESPIRATORY 08/29/18 12:17 JENNIFER ERWIN 78 F [address] [place] [id number] / Director: Domingo Wells M.D. Clinical Laboratory Report Name: JENNIFER ERWIN Acct: [id number] Status: ADM [place] : 1940 [facility] [place] Date: 08/29/18 Age: 78 Sex: F Dis Date: Loc: [address] Rm/Bed: N280-1 Spec: [id number] Collected: 08/29/18 Received: 08/29/[address] [facility] [address]: Tulio Cronin M.D. Source: Blood OV Order: Ordered: Blood Culture Comments: Comment Default is separate sites, same time Blood culture drawn venously from Right Arm. Blood culture drawn venously from Right Arm. Procedure Result Verified Site Blood Culture Aerobic Preliminary 08/30/18-399 No growth in Aerobic bottle after 24 hours. Blood Culture Anaerobic Preliminary 08/30/18-399 No growth in Anaerobic bottle after 24 hours. Name: ERWIN,KAY SHABANA : 1940 PAGE 1 Printed: 08/30/18 1100 END OF REPORT
--- NOTE | 2018-08-30 15:04 | Hospitalist Progress Note ---
Date of Service August 30, 2018 Assessment & Plan (1) ALS (amyotrophic lateral sclerosis): -dysphagia, nonverbal, communicates with hand gestures and computer tablet device -nutrition via PEG tube -muscle weakness, at personal fci she ambulates with help of a walker Shortness of breath and hypoxemic on admission secondary to ALS and problems of clearing oral secretions Mild mucous plugging with bibasilar subsegmental consolidation suggestive of probable atelectasis -initially on nasal cannula oxygen on admission -supplemental oxygen down titrated off to room -As per pulmonary service, CT scan of the chest showed atelectatic changes in the right middle lobe and lingula; One cannot entirely exclude pneumonia but it looks more like atelectasis. -will switch patient from ampicillin sulbactam and doxycycline to ceftriaxone and doxycycline -follow admission blood cultures -Levoalbuterol 0.63 q6 hours as per pulmonary service to help as bronchodilator and minimize tachycardia -will try flutter valve to help with mucous plugging -patient uses Yankauer suction on her own, will have respiratory/nursing staff assist her with suctioning -chest discomfort on 08/30/18 likely due to oral secretions in throat, will repeat troponin and EKG but unlikely that patient is having cardiac event -continues to be on IV antibiotics. on scheduled nebulizer treatments. have ordered chest percussion therapy. will obtain 2 view CXR tomorrow on 08/31/18. Leukocytosis -WBC elevated to 21 K on 08/30/18 -is afebrile, repeat CBC, repeat blood cultures, send C.difficile with next stool. 2 view CXR on 08/31/18 Hypertension -on hydrochlorothiazide. Hypothyroidism -on Synthroid. Depression - on Zoloft. Deep venous thrombosis prophylaxis, SCDs for now. Code Status: Do Not Resuscitate/Do Not Intubate as per patient and her niece Brenda [phone] Subjective Patient seen and examined at bedside. she is on room air and appears to be comfortable. she responds with writing on computer tablet. yesterday night she was having discomfort discomfort of her neck and chest pressure. respiratory was able to do some deep suctioning. patient not having these discomforts today. there is leukocytosis on labs but no fever continues to be on IV antibiotics. on scheduled nebulizer treatments. have ordered chest percussion therapy. will obtain 2 view CXR tomorrow on 08/31/18. Physical Exam Constitutional: WD/WN, vitals as above Eyes: PERRL, conjunctivae normal, anicteric sclerae ENMT: external ear and nose normal, oropharynx normal Cardiovascular: Rate/Rhythm: regular rate and regular rhythm Gastrointestinal (Abdomen): normal bowel sounds, soft, nontender, no hepatosplenomegaly (tube feeding via PEG tube) Musculoskeletal: Head/Neck/Chest: normocephalic and head atraumatic Psychiatric: Orientation: alert and cooperative Results & Data Vital Signs (Past 12 Hours) Vital Signs Temp Pulse Pulse Resp BP BP Pulse Ox 08/30/18 14:07 76 20 92 08/30/18 11:34 36.0 C L 86 19 131/72 92 08/30/18 07:47 90 22 91 08/30/18 07:14 90 08/30/18 04:00 36.8 C 91 H 20 124/60 92
[2018-08-30 15:43] LABS: Basophils # (auto) 0.03 K/uL (0-0.2); Basophils % (auto) 0.1 %; Eosinophils # (auto) 0.06 K/uL (0-0.5); Eosinophils % (auto) 0.3 %; Hemoglobin 13.3 g/dL (12.0-16.0); Immature Granulocytes # (auto) 0.06 K/uL (0.00-0.02); Immature Granulocytes % (auto) 0.3 %; Lymphocytes # (auto) 1.06 K/uL (1.2-3.4); Lymphocytes % (auto) 5.3 %; Mean Corpuscular Volume 89.7 fL (80-100); Monocytes # (auto) 1.38 K/uL (0.11-0.59); Monocytes % (auto) 6.9 %; Neutrophils # (auto) 17.45 K/uL (1.4-6.5); Neutrophils % (auto) 87.1 %; Platelet Count 203 K/uL (130-400); RDW Coefficient of Variation 12.9 % (11.5-14.5); RDW Standard Deviation 42.7 fL (36.4-46.3); Red Blood Count 4.35 M/uL (4.2-5.4); White Blood Count 20.04 K/uL (4.8-10.8)
[2018-08-30 15:55] LABS: Mean Corpuscular Hgb Conc 34.1 g/dL (32-36)
[2018-08-31] MEDS: LEVALBUTEROL HCL 0.63 MG/3 ML NEB NEB SCH ×4 (01:35→19:25)
[2018-08-31] MEDS: LEVOTHYROXINE SODIUM 137 MCG TABLET PO SCH (06:21)
--- NOTE | 2018-08-31 08:17 | XRay Report ---
XR chest 2V routine CLINICAL HISTORY: follow if any new lung infiltrates pneumonia COMPARISON STUDY: 08/29/2018 FINDINGS: Small parenchymal infiltrate medial aspect left base. Baseline emphysematous changes simila r. Diaphragms are smooth. IMPRESSION: Small parenchymal infiltrate left base. The above report was generated using voice recognition software. It may contain grammatical, syntax or spelling errors. Electronically signed by: Dino Ariza M.D. 08/31/2018 8:16 AM
[2018-08-31] MEDS: cefTRIAXone SODIUM 1,000 MG in DEXTROSE 5% 50 ML IV SCH (08:41)
--- NOTE | 2018-08-31 09:01 | History & Physical Bridge Note ---
Date of Service August 31, 2018 History & Physical Bridge Note I have examined the patient, reviewed the History & Physical and in the interval since the performance of the History & Physical I have noted the following changes of clinical significance: no changes noted
--- NOTE | 2018-08-31 09:02 | Pre Anesthesia Assessment ---
Date of Service August 31, 2018 Pre Sedation Assessment Vital Signs Temp Pulse Pulse Resp BP BP Pulse Ox 08/31/18 07:32 36.1 C L 82 18 158/61 H 92 08/31/18 06:57 78 18 94 08/31/18 04:00 36.5 C 83 20 145/70 H 95 08/31/18 01:36 88 17 95 08/31/18 00:00 84 08/30/18 22:34 36.5 C 91 H 20 169/80 H 93 08/30/18 19:52 72 20 91 08/30/18 19:24 36.4 C L 91 H 20 115/64 94 08/30/18 16:17 93 H 08/30/18 15:46 36.6 C 93 H 20 167/74 H 93 08/30/18 14:07 76 20 92 08/30/18 11:34 36.0 C L 86 19 131/72 92 Cardiovascular RRR, no murmur, no edema + peripheral pulses normal Respiratory normal respiratory effort, lungs clear to auscultation Pre-Sedation Airway Assessment Smoking Status: Former smoker Hx Sleep Apnea: No Hx Difficult Intubation: No Short, Thick Neck: No Thyromental Distance: > or= 3.5 Finger Breadths Oral Cavity: + WNL Mallampati Class: II ASA: ASA3 Procedure Planning Contraindications for Sedation: none Current Medications Reviewed: Yes Notes The planned sedation has been discussed with the patient. Informed Consent was obtained. I have identified the patient, determined the appropriateness of sedation and have assessed the patient immediately prior to the procedure. All medicine(s) and interventions are by my order.
[2018-08-31] MEDS: NUTREN PEG SCH ×4 (09:21→20:12)
[2018-08-31] MEDS: DOXYCYCLINE HYCLATE 100 MG in DEXTROSE 5% 100 ML IV SCH ×2 (09:22→20:30)
--- NOTE | 2018-08-31 10:55 | Progress Note ---
DATE: 08/31/2018 PULMONARY MEDICINE PROGRESS NOTE Chart reviewed, the patient examined, assessment. SUBJECTIVE: A 78-year-old white female with a history of amyotrophic lateral sclerosis, currently receiving enteral alimentation via PEG tube. She was admitted by the hospitalist service and seen by Dr. Jef Yang in pulmonary consultation on 08/29/2018. The patient is in no distress, cannot verbalize, although clearly her cognition is excellent and she was able to communicate with me with the use of her laptop. I asked her if she was still feeling congested and she said yes, may be slightly improved since her admission. Apparently there were bloody secretions that were being suctioned from her naso and oropharynx. She is on subQ heparin. Blood cultures have been negative. Sputum nondiagnostic. CAT scan on admission showed atelectatic changes, right middle lobe and lingula, with debris and mucus secretions seen in those respective bronchi. She is receiving aerosolized bronchodilator and is currently on IV and had been on Augmentin and doxycycline. She resides at [facility] and apparently frequently has to have mucus suctioned from her oropharynx. She has had a PEG tube in place in November 2017 from which she receives all her enteral alimentation. PHYSICAL EXAMINATION: CURRENT VITAL SIGNS: Blood pressure 158/61, pulse 87 and regular, respiratory rate 18, temperature 36.1, O2 sat 92% on room air. SKIN: Without lesion. HEENT: Atraumatic, normocephalic, PERRLA, EOMI. Conjunctivae pale. Sclerae nonicteric. LUNGS: Coarse rhonchi with adventitious breath sounds heard over the large airways. CARDIAC: Regular rate and rhythm. I do not appreciate a gallop. ABDOMEN: Soft, scaphoid. PEG tube in place. EXTREMITIES: No pedal edema, clubbing, or cyanosis. NEUROLOGIC: Unable to fully evaluate, was unable to watch if patient can ambulate but apparently is severely debilitated from her ALS and has great difficulty clearing secretions. The patient has been unable to use effectively the flutter valve, is currently on O2 supplementation. OVERALL ASSESSMENT AND PLAN: I reviewed the patient's CT scan and from the clinical exam, the patient might benefit from bronchoscopy with BAL. I ran the idea by the patient describing the procedure in detail and she gave me a thumbs up with a smile and appeared to understand the potential for complication, but that she does not feel that she is clearing her oropharyngeal and secretions from her lung and this is causing her concern. Since patient is n.p.o., we will hold the subQ heparin and schedule her for bronchoscopy with BAL at noon time.
[2018-08-31] MEDS: SODIUM CHLORIDE 0.9% 1000ML 1,000 ML IV SCH (11:47)
[2018-08-31] MEDS ORDERED: LEVALBUTEROL HCL 1.25 MG/3 ML NEB NEB STA (12:03)
[2018-08-31] MEDS ORDERED: LIDOCAINE 4% INH SOLN 4 ML BTL INFIL STA (12:03)
[2018-08-31] MEDS ORDERED: LIDOCAINE HCL VISCOUS SOLN 2% 15 ML UDC MT ONE (12:03)
[2018-08-31] MEDS ORDERED: OXYMETAZOLINE 0.05% 30 ML BTL ONE (12:03)
[2018-08-31] MEDS ORDERED: LIDOCAINE HCL 2% (LOCAL) INJ 50 ML VIAL INFIL STA (12:03)
[2018-08-31] MEDS ORDERED: MIDAZOLAM HCL 1 MG/ML 2ML VIAL IV STA (12:03)
--- NOTE | 2018-08-31 12:04 | Post Anesthesia Assessment ---
Date of Service August 31, 2018 Post Sedation Assessment Vital Signs Temp Pulse Pulse Resp BP BP Pulse Ox 08/31/18 11:45 86 20 167/75 H 100 08/31/18 11:40 86 20 164/76 H 100 08/31/18 11:30 91 H 18 177/80 H 96 08/31/18 09:50 87 08/31/18 07:32 36.1 C L 82 18 158/61 H 92 08/31/18 06:57 78 18 94 08/31/18 04:00 36.5 C 83 20 145/70 H 95 08/31/18 01:36 88 17 95 08/31/18 00:00 84 08/30/18 22:34 36.5 C 91 H 20 169/80 H 93 08/30/18 19:52 72 20 91 08/30/18 19:24 36.4 C L 91 H 20 115/64 94 08/30/18 16:17 93 H 08/30/18 15:46 36.6 C 93 H 20 167/74 H 93 08/30/18 14:07 76 20 92 Recovery Score Activity: Moves 4 extremities Respiration: Deep Breath/Cough Circulation: +/-20% PreAnes Value Consciousness: Arouseable (by name) Oxygen Saturation: > 92% On Room Air Discharge Sedation Level of Care: Fast Track Phase II Post Sedation Plan On clinical assessment, the patient appears to have tolerated the sedation without complications. Patient is recovering as anticipated. Patient will continue to be monitored by nursing and may be discharged when sedation discharge criteria are met per below protocol. Upon Completions of procedure and additional 15 minutes continue every 5 minute vital signs and the P.A.R. score; then discharge to a Phase I or Fast Track to Phase II per the following guidelines: * Discharge Patient to appropriate Phase II area if PAR is 8 or greater or return to pre- procedure baseline. The post - procedure orders will be as directed. * If PAR score is less than 8 or not return to pre-procedure baseline then patient will follow Phase I monitoring till PAR is reached for Phase II. The Phase I may be done in procedure room or may call to secure a Phase I area. * If naloxone or flumazenil are used for reversal, hold in Phase I for continued monitoring from when last reversal dose was given for a minimum of 60 minutes or longer pending the nurse and/or physician discretion of patient condition before discharge to Phase II. Please call the Sedation Physician to re-evaluate and complete post-note for discharge to Phase II area. Do NOT discharge from procedure sedation or Phase 1 until post- sedation evaluation note is complete by procedure /sedation MD Sedation Discharge Instructions to be given to the patient at discharge to home.
--- NOTE | 2018-08-31 12:05 | Post Operative Brief Note ---
Immediate Post Op Note v1 Date of Surgery August 31, 2018 Pre & Post Diagnosis Operation Date: 08/31/18 12:30 Pre-Op Diagnosis: Chronic Aspiration, ALS Post-Op Diagnosis: Chronic Aspiration, ALS Procedure Operation Date: 08/31/18 12:30 Actual Procedures p Bronchoscopy Radiology(Bilateral) - Royal Taylor MD Surgeon Royal Taylor MD Transplant Registered Nurse none Estimated Blood Loss 0 Findings Consistent with Post-Op Diagnosis Chr Aspiration w mucoid impaction Complications none Disposition Accompanied Patient To Recovery: No Overlapping Procedure I was present for: the critical portions of procedure. I was immediately available: during the entire case. Back up surgeon: was not required during procedure.
[2018-08-31] MEDS: SERTRALINE HCL 50 MG TABLET PEG SCH (12:36)
[2018-08-31] MEDS: hydroCHLOROthiazide 25 MG TAB PEG SCH (12:37)
--- NOTE | 2018-08-31 13:59 | Operative Report ---
DATE OF OPERATION: 08/31/2018 PROCEDURE: Fiberoptic bronchoscopy with bronchoalveolar lavage. INDICATIONS: Left lower lobe pneumonia/chronic aspiration in a patient with ALS. ANESTHESIA PREOPERATIVELY: None. ANESTHESIA DURING PROCEDURE: IV Versed 2 mg, 20 mL 2% Xylocaine spray above and below the cords, 4% viscous Xylocaine intranasally. Moderate conscious sedation was utilized and implemented at 1142 and terminated at 1155. DESCRIPTION OF PROCEDURE: Fiberoptic bronchoscope was inserted into the right naris with minimal difficulty and passed to the level of the true vocal cords. A large amount of mucoviscous secretion was seen pooling in the supraglottic region due to patient's difficulty clearing oral and nasopharyngeal secretions. This area level was suctioned copiously and the cords appeared to approximate normally. The cords were anesthetized with 2% Xylocaine spray and the scope was then introduced in the trachea, right and left tracheobronchial tree. A thick amount of mucoviscous secretion was adherent to the tracheal lumen and lavaged until clear. The larry was sharp. The right mainstem bronchus showed similar findings with copious mucoviscous secretion and mucus plugging. The right upper lobe, the apical posterior and anterior segments, bronchus intermedius, right middle lobe, medial lateral segments and all basilar segments of right lower lobe were free of endobronchial lesions. Bronchial crypts and clefts were seen throughout the right tracheobronchial tree. Left tracheobronchial tree was explored and similar findings noted with copious amount of mucoviscous secretion lavaged from each lobar segment until clear. Left upper lobe, the apical and posterior and anterior segments, lingual subdivision of left lower lobe were all free of endobronchial lesions with thick mucus plugging visible and each segmental and subsegmental bronchus from each lobar region was lavaged with normosol and the aspirate sent for appropriate studies. The patient did tolerate the procedure well, although did desaturate at one point, but at termination of the procedure was given a nebulizer treatment with Xopenex 1.25 mg and was able to be transferred back to the medical floor, hemodynamically stable. No further signs of respiratory compromise. Will await microbiological and cytologic examination of the bronchial washings. I attest to the content of the Intraoperative Record and any orders documented therein. Any exception s are noted below.
--- NOTE | 2018-08-31 16:55 | Hospitalist Progress Note ---
Date of Service August 31, 2018 Assessment & Plan (1) ALS (amyotrophic lateral sclerosis): -dysphagia, nonverbal, communicates with hand gestures and computer tablet device -nutrition via PEG tube -muscle weakness, at personal senior care she ambulates with help of a walker Shortness of breath and hypoxemic on admission secondary to ALS and problems of clearing oral secretions Mild mucous plugging with bibasilar subsegmental consolidation suggestive of probable atelectasis -initially on nasal cannula oxygen on admission -As per pulmonary service, CT scan of the chest showed atelectatic changes in the right middle lobe and lingula; One cannot entirely exclude pneumonia but it looks more like atelectasis. -will switch patient from ampicillin sulbactam and doxycycline to ceftriaxone and doxycycline - remains on 4 liters by NH - for Bronch today awaiting recommendations from Pulm - continue Ceftri, Doxy nebs -patient uses Yankauer suction on her own, will have respiratory/nursing staff assist her with suctioning Leukocytosis -WBC elevated to 21 K on 08/30/18 - possible L lower lobe pneumonia - blood cultures: negative bronch warsh cultures: pending - on Ceftri, Doxy Hypertension -on hydrochlorothiazide. - will add PRN Hydralazine Hypothyroidism -on Synthroid. Depression - on Zoloft. Deep venous thrombosis prophylaxis, SCDs for now. Code Status: Do Not Resuscitate/Do Not Intubate as per patient and her niece Brenda [phone] Subjective ff up for hypoxia seen resting in bed, comfortable in good spirits states she feels slightly better overall breathing is improving denies cough no abdominal pain no other symptoms Review of Systems Review of Systems: All systems reviewed & are unremarkable except as noted in HPI & below Physical Exam Physical Exam: General- oriented x 3, not in distress, breathing with no effort or accessory muscle use Head- atraumatic Eyes- PERRL, EOMI, anicteric ENT- oropharynx clear Neck- supple, no JVD, no adenopathy, no thyromegaly; carotids +2/2, no bruits appreciated Lungs- mild rales left base, no wheezing Heart- normal rate, regular rhythm; no murmur, no gallop, no rub appreciated Abdomen- normal bowel sounds, nondistended, soft, nontender, no masses or hepatosplenomegaly Peg tube: no problems noted Extremities- no pretibial edema, no calf tenderness; peripheral pulses intact Neuro- alert, oriented x 3; non verbal, communicates with tablet no other focal neuro symptoms notes Skin- warm & dry Results & Data Vital Signs (Past 12 Hours) Vital Signs Temp Pulse Pulse Resp BP BP Pulse Ox 08/31/18 15:50 85 08/31/18 15:19 36.4 C L 90 22 178/70 H 96 08/31/18 13:31 36.5 C 91 H 18 170/63 H 94 08/31/18 13:01 36.5 C 82 18 145/75 H 99 08/31/18 12:30 36.5 C 90 18 168/72 H 91 08/31/18 12:05 78 18 163/72 H 93 08/31/18 12:00 85 18 166/72 H 96 08/31/18 11:55 93 H 18 174/77 H 96 08/31/18 11:50 103 H 20 162/75 H 91 08/31/18 11:45 86 20 167/75 H 100 08/31/18 11:40 86 20 164/76 H 100 08/31/18 11:30 91 H 18 177/80 H 96 08/31/18 09:50 87 08/31/18 07:32 36.1 C L 82 18 158/61 H 92 08/31/18 06:57 78 18 94
[2018-08-31] MEDS ORDERED: HydrALAZINE HCL 20 MG/ML VIAL IV PRN (17:04)
[2018-09-01] MEDS: LEVALBUTEROL HCL 0.63 MG/3 ML NEB NEB SCH ×4 (01:46→19:51)
[2018-09-01] MEDS: LEVOTHYROXINE SODIUM 137 MCG TABLET PO SCH (05:54)
[2018-09-01] MEDS: hydroCHLOROthiazide 25 MG TAB PEG SCH (08:16)
[2018-09-01] MEDS: NUTREN PEG SCH ×4 (08:16→21:19)
[2018-09-01] MEDS: SERTRALINE HCL 50 MG TABLET PEG SCH (08:17)
[2018-09-01] MEDS: DOXYCYCLINE HYCLATE 100 MG in DEXTROSE 5% 100 ML IV SCH ×2 (08:33→21:19)
[2018-09-01] MEDS: SODIUM CHLORIDE 0.9% 1000ML 1,000 ML IV SCH (10:19)
[2018-09-01] MEDS ORDERED: AMLODIPINE BESYLATE 5 MG TAB PEG ONE (17:24)
[2018-09-01] MEDS ORDERED: SCOPOLAMINE 1.5 MG TDSY TD SCH (17:30)
--- NOTE | 2018-09-01 17:33 | Hospitalist Progress Note ---
Date of Service September 01, 2018 Assessment & Plan (1) ALS (amyotrophic lateral sclerosis): per Dr Whalen's notes: -dysphagia, nonverbal, communicates with hand gestures and computer tablet device -nutrition via PEG tube -muscle weakness, at personal senior living she ambulates with help of a walker Shortness of breath and hypoxemic on admission secondary to ALS and problems of clearing oral secretions Mild mucous plugging with bibasilar subsegmental consolidation suggestive of probable atelectasis -initially on nasal cannula oxygen on admission -As per pulmonary service, CT scan of the chest showed atelectatic changes in the right middle lobe and lingula; One cannot entirely exclude pneumonia but it looks more like atelectasis. -will switch patient from ampicillin sulbactam and doxycycline to ceftriaxone and doxycycline - s/p Bronchoscopy with removal of Mucus Plugging 08/31/18 Bronchial Wash cultures: pending - weaned off oxygen continue Doxycycline, awaiting bronch wash cultures continue nebs add Scopolamine to reduce secretions -patient uses Yankauer suction on her own,respiratory/nursing staff assisting with suctioning Leukocytosis - WBC elevated to 21 K on 08/30/18 - possible L lower lobe pneumonia - blood cultures: negative bronch warsh cultures: pending - on Doxy Hypertension -on hydrochlorothiazide. - will add Amlodipine 5mg po daily monitor Hypothyroidism -on Synthroid. Depression - on Zoloft. Deep venous thrombosis prophylaxis, SCDs Code Status: Do Not Resuscitate/Do Not Intubate as per patient and her niece Brenda [phone] Subjective ff up for pneumonia seen resting in bed, comfortable states she feels a little bit better off oxygen supplement denies shortness of breath, cough reports secretions in her throat, has difficulty clearing secretions in her throat denies other symptoms Review of Systems Review of Systems: All systems reviewed & are unremarkable except as noted in HPI & below Physical Exam Physical Exam: General- oriented x 3, not in distress, speaks in sentences with no effort or accessory muscle use Eyes- anicteric Neck- no JVD Lungs- clear breath sounds bilaterally, no rales/wheezes Heart- normal rate, regular rhythm; no murmurs Abdomen- normal bowel sounds, nondistended, soft, nontender Extremities- no pretibial edema, no calf tenderness Neuro- alert, oriented x 3; no gross focal neurologic deficits Skin- warm & dry Results & Data Vital Signs (Past 12 Hours) Vital Signs Temp Pulse Pulse Resp BP BP Pulse Ox 09/01/18 16:00 36.0 C L 85 18 160/99 H 95 09/01/18 14:13 87 20 95 09/01/18 11:36 36.4 C L 86 16 166/68 H 90 09/01/18 08:00 77 09/01/18 07:00 77 18 93 09/01/18 06:59 36.6 C 92 H 18 162/62 H 93
[2018-09-01] MEDS: CHECK SCOPOLAMINE PATCH PLACEMENT SCH (23:31)
[2018-09-02] MEDS: LEVALBUTEROL HCL 0.63 MG/3 ML NEB NEB SCH ×4 (02:50→19:39)
[2018-09-02] MEDS: LEVOTHYROXINE SODIUM 137 MCG TABLET PO SCH (06:06)
[2018-09-02] MEDS: CHECK SCOPOLAMINE PATCH PLACEMENT SCH ×3 (08:40→23:58)
[2018-09-02] MEDS: NUTREN PEG SCH ×5 (08:41→23:12)
[2018-09-02] MEDS: SERTRALINE HCL 50 MG TABLET PEG SCH (08:41)
[2018-09-02] MEDS: hydroCHLOROthiazide 25 MG TAB PEG SCH (08:42)
[2018-09-02] MEDS: AMLODIPINE BESYLATE 5 MG TAB PEG SCH (08:42)
[2018-09-02] MEDS: DOXYCYCLINE HYCLATE 100 MG in DEXTROSE 5% 100 ML IV SCH (09:23)
--- NOTE | 2018-09-02 11:40 | Hospitalist Progress Note ---
Date of Service September 02, 2018 Assessment & Plan (1) ALS (amyotrophic lateral sclerosis): per Dr Whalen's notes: -dysphagia, nonverbal, communicates with hand gestures and computer tablet device -nutrition via PEG tube -muscle weakness, at personal [facility] she ambulates with help of a walker Shortness of breath and hypoxemic on admission secondary to ALS and problems of clearing oral secretions Mild mucous plugging with bibasilar subsegmental consolidation suggestive of probable atelectasis -initially on nasal cannula oxygen on admission - s/p Bronchoscopy with removal of Mucus Plugging 08/31/18 Bronchial Wash cultures:Corynebacterium, not pathogenic - weaned off oxygen discussed with Dr. Taylor, recommend to d/c Doxycycline continue nebs added Scopolamine to reduce secretions continue to monitor -patient uses Yankauer suction on her own,respiratory/nursing staff assisting with suctioning Leukocytosis - WBC elevated to 21 K on 08/30/18 - blood cultures: negative bronch wash cultures: negative - afebrile, no signs of infection at this time repeat CBC monitor off abx Hypertension -on hydrochlorothiazide. - added Amlodipine 5mg po daily BP improving monitor Hypothyroidism -on Synthroid. Depression - on Zoloft. Deep venous thrombosis prophylaxis, SCDs Code Status: Do Not Resuscitate/Do Not Intubate as per patient and her niece Brenda [phone] Subjective ff up for hypoxia, possible pneumonia seen sitting up, resting, using suction device to address secretions states she feels about the same not in distress no cough, chest pain, dyspnea, palpitations denies abdominal pain no other symptoms Review of Systems Review of Systems: All systems reviewed & are unremarkable except as noted in HPI & below Physical Exam Physical Exam: General- oriented x 3, not in distress, breathing with no effort or accessory muscle use Eyes- anicteric Neck- no JVD Lungs- clear breath sounds bilaterally no wheezing no crackles Heart- normal rate, regular rhythm; no murmurs Abdomen- normal bowel sounds, nondistended, soft, nontender Extremities- no pretibial edema, no calf tenderness Neuro- alert, oriented x 3; no gross focal neurologic deficits Skin- warm & dry Results & Data Vital Signs (Past 12 Hours) Vital Signs Temp Pulse Resp BP Pulse Ox 09/02/18 11:34 36.3 C L 85 18 132/56 L 92 09/02/18 07:29 78 18 95 09/02/18 07:23 36.3 C L 78 18 134/51 L 92 09/02/18 02:50 78 16 95
[2018-09-02 11:47] LABS: Calcium 9.7 mg/dl (8.5-10.1); Creatinine Clr Calc Pharmacy 60.5 ml/min; Est GFR (African American) 99.6; Est GFR (Non-African American) 85.9; Potassium 3.8 mmol/L (3.5-5.1)
--- NOTE | 2018-09-02 11:56 | Progress Note ---
DATE: 09/02/2018 TIME: 1100 hours. Chart reviewed, the patient examined, assessment. SUBJECTIVE: No sign of respiratory distress. Bronchoscopy was consistent with some mild mucoid impaction and clear evidence of patient's difficulty clearing oral secretions. I concur that CAT scans showed atelectatic changes in the right middle lobe and lingula and patient is on appropriate adequate therapy. The scopolamine to reduce secretions is a good idea and obviously the major part of all this is continue enteral alimentation. Cultures grew out Corynebacterium species not felt to be a pathogen in this setting. Chest x-ray yesterday shows a small parenchymal infiltrate in the left base, but generally clear. OBJECTIVE: CURRENT VITAL SIGNS: Blood pressure 134/51, pulse 78 and regular, respiratory rate 18, temperature 36.3, O2 sat 95% on room air. SKIN: Without lesion. HEENT: Atraumatic. LUNGS: Distant P and A. CARDIAC: Regular rate and rhythm. No murmurs or gallops. ABDOMEN: Soft, scaphoid. EXTREMITIES: No pedal edema. ASSESSMENT AND PLAN: A 78-year-old with amyotrophic lateral sclerosis with mucoid impaction and trouble clearing oropharyngeal secretions with probable atelectasis versus pneumonitis, but would switch to oral antibiotic in the form of doxycycline and see if patient does require O2 supplementation, which does not appear to be the case. Will sign off clinically for now, but would be happy to see the patient in the clinic once discharged in followup.
--- NOTE | 2018-09-02 12:40 | Neurology Consultation ---
Date of Consultation September 02, 2018 Assessment & Plan (1) ALS (amyotrophic lateral sclerosis): 1. progression of ALS- no treatment at this time 2. follow with pulmonary as directed 3. aspiriation pneumonia - treat to culture 4. keep appointment scheduled with our office for 09/13/2018 with Jerzy Spicer, DO will sign off for now will be available for any further questions concerns. Supervising Physician Co-Signing Physician Notes I have seen and discussed above patient with Dr Shaquille Ho, neurology I have seen, examined, interviewed and discussed this unfortunate woman's case with Em Reynoso PA-C and I reviewed her current inpatient chart. Mrs. Mayo has primarily bulbar/pseudo-bulbar motor neuron disease presenting probably 3 years ago with a primary speech disturbance and now progressing slo wly to the point of having emerging weakness in her upper and to a lesser degree lower extremities and I have increasing degrees of dysphasia and difficulty handling her pulmonary secretions all of which is resulted in her presentation with atelectasis and now a remarkable response to Dr. Taylor's intervention with bronchoscopy etc. and with antibiotic therapy She has been seen at the [facility] but unfortunately I could not get into her records which have been scanned into the gastric system she does not recall having a EMG or nerve conduction study but I feel the believe that this was not done at some point in the process of evaluating her case and I suspect she has had extensive imaging studies of the cervical spine brain and brainstem at a minimum. She is only been a [facility] since March and prior to that resided I believe has quite a lot of support systems in place now including a PEG tube, a BiPAP or CPAP machine and has a program in place of how best to handle her secretions feedings etc. and apparently even ambulates with a walker when her strength is up to his baseline. She is an appointment to see Dr. Jerzy Spicer March 16 in our local [facility] clinic at [facility] at this point neurology does not have a lot more to offer other than follow-up and support which is her receiving quite a bit of this through Dr. Puentes her primary care physician in the facility at [facility] unfortunately there are no currently recognized effective medications for treating this motor neuron disorder which presented in a somewhat atypical fashion with bulbar/pseudobulbar palsy preceding the onset of more generalized muscle weakness and affect even now she has very little in the way of lower motor neuron signs in the lower extremities and only minimal evidence for them in the upper extremities manifested by atrophy of intrinsic hand muscles Neurology will be signing off at this time as we really do not have anything more to offer on an inpatient basis Shaquille Ho MD History of Present Illness Reason for Consultation: progression of ALS Requesting Physician: Alli Espinal MD Attending Physician: Alli Espinal MD History of Present Illness Leslie is a 78 year old female residing at [facility] ALS, diagnosed about a year ago in [place], with speech issues, PEG tube placement, non verbal, takes all the medications and tube feeding via the PEG tube, hypothyroidism, depression, ambulatory dysfunction who presented with SOB. She does suction herself everyday which has increased lately. She was worried about that she might have had some obstruction in the lungs. She is nonverbal, but she uses the IPad for communication. She had an hour-long neb treatment in the ER on admission O2 level was stable on 3L O2. She does not use oxygen at home. She ambulates with a walker. Dr Taylor took her to the OR for a bronchoalveolar lavage which helped with the secretions she continue to self suction. Currently she is resting comfortably and using her ipad to communicate. denies CP, SOB, abdominal pain, one sided weakness, numbness tingling, N, V. PEG tube in place, global weakness. Allergies Allergy/AdvReac Type Severity Reaction Status Date / Time No Known Allergies Allergy Unverified 08/29/18 03:18 Home Medications Home Medications Medication Instructions Recorded Confirmed Type Zoloft 25 mg PEG DAILY 08/29/18 08/29/18 History hydrochlorothiazide 25 mg FEEDING TUBE DAILY 08/29/18 08/29/18 History levothyroxine 137 mcg PEG DAILY 08/29/18 08/29/18 History nutritional supplements [Nutren 1 ea FEEDING TUBE UD 08/29/18 08/29/18 History 1.5] Patient History Medical History Hypothyroidism Hypertension ALS (amyotrophic lateral sclerosis) Surgical History PEG (percutaneous endoscopic gastrostomy) status PEG tube in place Ankle fracture Cataract Bilateral surgery with lens implant H/O hernia repair History of tonsillectomy and adenoidectomy Family History Other No significant family history Social History Preferred Language: Afghan Communication Ability: Effective Communication Ability Comment: Patient nonverbal but cognitively intact. Communication Tools: IPad Beliefs That Will Affect Care: None Current Living Situation: Personal Care Facility Current Living Situation Comment: [facility] Other Information That Helps Us Care for You: No Feels Safe at Home: Yes Safety Concerns: Feels Safe At This Time Smoking Status: Former smoker Tobacco Type: cigarettes Age Started Using Tobacco: 26 Age Quit Using Tobacco: 68 Cigarettes Per Day: 3 cigarettes/day Number of Years Since Quit: 10 Hx Alcohol Use: Yes (A few beers per week) Hx Substance Use: No Physical Exam Physical Exam: Gen: alert NAD lungs course breath sounds CV RRR muscluar atrophy through out brisk reflexes bilaterally sensation intact to cool/light mild contractures in hands Results & Data Vital Signs (Past 12 Hours) Vital Signs Temp Pulse Resp BP Pulse Ox 09/02/18 11:34 36.3 C L 85 18 132/56 L 92 09/02/18 07:29 78 18 95 09/02/18 07:23 36.3 C L 78 18 134/51 L 92 09/02/18 02:50 78 16 95 Laboratory Results Abnormal lab results 09/02/18 Range/Units 11:09 Sodium 126 L (136-145) mmol/L Chloride 89 L (98-107) mmol/L BUN/Creatinine Ratio 29.0 H (10-20) Glucose 145 H (70-99) mg/dl Diagnostic Findings CXR- Subtle elevation interstitium. Likely diagnostic considerations include subtle interstitial edema versus an interstitial inflammatory process. Clinical and radiographic follow-up is recommended. CTA chest-Study limited secondary to respiratory motion. No definite evidence of pulmonary thromboembolic disease. Mild mucous plugging with bibasilar subsegmental consolidation suggestive of probable atelectasis. Pneumonia consid ered less likely. Correlate clinically. Mild cardiomegaly without overt pulmonary edema or pleural effusion. Small hiatal hernia. CXR- Small parenchymal infiltrate left base.
[2018-09-02 15:34] LABS: Basophils # (auto) 0.05 K/uL (0-0.2); Basophils % (auto) 0.5 %; Eosinophils # (auto) 0.18 K/uL (0-0.5); Eosinophils % (auto) 1.8 %; Hematocrit (blood only) 41.6 % (37-47); Hemoglobin 14.4 g/dL (12.0-16.0); Immature Granulocytes # (auto) 0.02 K/uL (0.00-0.02); Immature Granulocytes % (auto) 0.2 %; Lymphocytes # (auto) 0.85 K/uL (1.2-3.4); Lymphocytes % (auto) 8.7 %; Mean Corpuscular Hgb Conc 34.6 g/dL (32-36); Mean Corpuscular Volume 88.1 fL (80-100); Mean Platelet Volume 10.7 fL (7.4-10.4); Monocytes # (auto) 0.93 K/uL (0.11-0.59); Monocytes % (auto) 9.6 %; Neutrophils % (auto) 79.2 %; Platelet Count 292 K/uL (130-400); RDW Coefficient of Variation 12.5 % (11.5-14.5); RDW Standard Deviation 40.2 fL (36.4-46.3); Red Blood Count 4.72 M/uL (4.2-5.4); White Blood Count 9.73 K/uL (4.8-10.8)
[2018-09-02] MEDS: NSS + 20MEQ KCL 20 MEQ/1,000 ML BAG IV SCH (16:11)
[2018-09-02] MEDS ORDERED: Nursing to Pharmacy Communication ONE (19:13)
[2018-09-03] MEDS: LEVALBUTEROL HCL 0.63 MG/3 ML NEB NEB SCH ×3 (02:10→14:17)
[2018-09-03] MEDS: NSS + 20MEQ KCL 20 MEQ/1,000 ML BAG IV SCH (05:35)
[2018-09-03] MEDS: LEVOTHYROXINE SODIUM 137 MCG TABLET PO SCH (05:35)
[2018-09-03] MEDS: AMLODIPINE BESYLATE 5 MG TAB PEG SCH (09:08)
[2018-09-03] MEDS: SERTRALINE HCL 50 MG TABLET PEG SCH (09:08)
[2018-09-03] MEDS: hydroCHLOROthiazide 25 MG TAB PEG SCH (09:08)
[2018-09-03] MEDS: NUTREN PEG SCH ×3 (09:09→16:36)
[2018-09-03] MEDS: CHECK SCOPOLAMINE PATCH PLACEMENT SCH ×2 (09:09→16:36)
[2018-09-03 09:34] LABS: BUN Creatinine Ratio 29.8 (10-20); Calcium 9.4 mg/dl (8.5-10.1); Creatinine Clr Calc Pharmacy 82.7 ml/min; Est GFR (African American) 110.4; Est GFR (Non-African American) 95.3
[2018-09-03 10:22] LABS: Potassium 4.4 mmol/L (3.5-5.1)
--- NOTE | 2018-09-03 10:51 | Progress Note ---
DATE: 09/03/2018 PULMONARY MEDICINE PROGRESS NOTE ASSESSMENT AND PLAN: The patient certainly seems comfortable from a cardiopulmonary standpoint and except for difficulty clearing oral secretions, her lungs are relatively clear and no sign of active infection. Doxycycline is to be discontinued and the patient weaned off oxygen. Thank you very much for allowing us to participate in her care. We will sign off on her care during this hospital stay and certainly will be happy to see her as an outpatient if that is desired.
--- NOTE | 2018-09-03 11:31 | Hospitalist Progress Note ---
Date of Service September 03, 2018 Assessment & Plan (1) ALS (amyotrophic lateral sclerosis): per Dr Whalen's notes: -dysphagia, nonverbal, communicates with hand gestures and computer tablet device -nutrition via PEG tube -muscle weakness, at personal skilled nursing she ambulates with help of a walker Shortness of breath and hypoxemic on admission secondary to ALS and problems of clearing oral secretions Mild mucous plugging with bibasilar subsegmental consolidation suggestive of probable atelectasis -initially on nasal cannula oxygen on admission - s/p Bronchoscopy with removal of Mucus Plugging 08/31/18 Bronchial Wash cultures:Corynebacterium, not pathogenic - weaned off oxygen discussed with Dr. Taylor, recommend to d/c Doxycycline continue nebs added Scopolamine to reduce secretions continue to monitor -patient uses [employer] suction on her own,respiratory/nursing staff assisting with suctioning Leukocytosis - WBC elevated to 21 K on 08/30/18 - blood cultures: negative bronch wash cultures: negative - afebrile, no signs of infection at this time Leukocytosis resolved Discussed with pulmonary service Dr. Taylor, does not recommend antibiotics at this point due to negative bronchial washing cultures -Continue good oral suctioning Scopolamine patch ordered to reduce secretions Recommend hospital bed, keep head of the bed up 45 degrees at all times to prevent aspiration -Follow-up with primary care physician next week Follow-up with neurologist in [facility] Dr. Jerzy Coleman as scheduled September 13, 2018 Follow-up with [facility] physicians group city editor Dr. Taylor in 2 to 3 weeks Hypertension -on hydrochlorothiazide. - added Amlodipine 5mg po daily BP improving monitor Hypothyroidism -on Synthroid. Depression - on Zoloft. Deep venous thrombosis prophylaxis, SCDs Code Status: Do Not Resuscitate/Do Not Intubate as per patient and her niece Brenda [phone] Disposition Return to personal skilled nursing Follow-up: Follow-up with primary care physician next week Follow-up with neurologist in [facility] Dr. Jerzy Coleman as scheduled September 13, 2018 Follow-up with [facility] group city editor Dr. Taylor in 2 to 3 weeks Subjective Follow-up for hypoxia Seen sitting up in bed, comfortable, in good spirits, smiling States she feels much better overall Shortness of breath, coughing Denies other symptoms States she is ready and would like to be discharged today Review of Systems Review of Systems: All systems reviewed & are unremarkable except as noted in HPI & below Physical Exam Physical Exam: General- oriented x 3, not in distress, breathing with no effort or accessory muscle use Eyes- anicteric Neck- no JVD Lungs- clear breath sounds bilaterally, crackles, no wheezing Heart- normal rate, regular rhythm; no murmurs Abdomen- normal bowel sounds, nondistended, soft, nontender Extremities- no pretibial edema, no calf tenderness Neuro- alert, oriented x 3; no new gross focal neurologic deficits Skin- warm & dry Results & Data Vital Signs (Past 12 Hours) Vital Signs Temp Pulse Pulse Resp BP Pulse Ox 09/03/18 08:04 36.6 C 71 20 150/66 H 95 09/03/18 06:59 75 18 94 09/03/18 03:15 36.4 C L 85 20 124/61 90 09/03/18 00:00 72 09/02/18 23:43 36.3 C L 77 20 120/58 L 94
--- NOTE | 2018-09-03 11:49 | Discharge Summary ---
Date of Service September 03, 2018 Admission HPI Per Admitting Provider CHIEF COMPLAINT: Shortness of breath. HISTORY OF PRESENT ILLNESS: This is a 78-year-old female, [facility] resident, history of ALS, diagnosed about a year ago, status post PEG tube, nonverbal, takes all the medications and tube feeding via the PEG tube, history of hypothyroidism, history of depression, ambulatory dysfunction, presents with shortness of breath. The patient was brought in because she was short of breath. The patient does suction herself everyday. She is getting a lot of suction lately. She was worried about that she might have had some obstruction in the lungs. She is nonverbal, but she uses the IPad for communication and her niece is in the room who is the power of immigration attorney. The patient received an hour-long neb treatment in the ER and she is saturating okay on 3 liters. She does not use oxygen at home. Denies any fever, chills. No headache, no dizziness, no blurred visions, no earache, no sore throat, no nausea, no abdominal pain. Normal bowel and bladder movements. No swelling in the legs. No rash. Ambulates with a walker. In the ER, later when she was suctioned, there was some blood in the suctions, but her mouth cavity looked okay. Hemodynamics were stable. ALLERGIES: COREG. PAST MEDICAL HISTORY: As mentioned above. PAST SURGICAL HISTORY: Carpal tunnel surgery and finger surgery, right ankle surgery, partial removal of the eye fluid in the left side, cataract surgery bilaterally, reversed upper eyelid bilateral, laparoscopic hernia repair, status post PEG tube placement. MEDICATIONS: The patient is on hydrochlorothiazide 25 mg p.o. daily, Zoloft 25 mg p.o. daily, levothyroxine 137 mcg daily. Once in a while, she uses a scopolamine patch. Hydrochlorothiazide 25 mg p.o. daily. FAMILY HISTORY: Significant for brother had cancer, diabetes. Mother has diabetes, heart disorder, hypertension. Father had stroke, hypertension. Sister has diabetes. SOCIAL HISTORY: Currently living at [facility], former smoker, quit in 2007, smoked average quarter pack a day for 15 years. No alcohol use, no drug use. REVIEW OF SYMPTOMS: As per HPI. Rest of review of systems is negative. Admission Exam Per Admitting Provider PHYSICAL EXAMINATION: GENERAL: The patient is older and frail, not in acute distress. VITAL SIGNS: Temperature 36.5, pulse 100, respiratory rate 20, blood pressure 113/75, oxygen 93% on 3 liters. HEENT: No pallor, no icterus. Pupils equal, round, and reactive to light. Oral mucosa dry. NECK: No JVD, no neck masses, no carotid bruits. CARDIOVASCULAR: S1, S2 heard. Tachycardia. No murmur, no gallop. RESPIRATORY SYSTEM: Normal AP diameter. No accessory muscle use. No wheezing, no crackles. ABDOMEN: Soft, bowel sounds present. Nontender. No distention. PEG tube site clean. CENTRAL NERVOUS SYSTEM: Nonverbal. Moves extremities. Alert and awake, and obeys simple commands. EXTREMITIES: No edema, no erythema. Principal Diagnosis Hypoxia secondary to mucous plugging , inability to clear oropharyngeal secretions Discharge Exam General- oriented x 3, not in distress, breathing with no effort or accessory muscle use Eyes- anicteric Neck- no JVD Lungs- clear breath sounds bilaterally, crackles, no wheezing Heart- normal rate, regular rhythm; no murmurs Abdomen- normal bowel sounds, nondistended, soft, nontender Extremities- no pretibial edema, no calf tenderness Neuro- alert, oriented x 3; no new gross focal neurologic deficits Skin- warm & dry Discharge Data Allergies Allergy/AdvReac Type Severity Reaction Status Date / Time No Known Allergies Allergy Unverified 08/29/18 03:18 Consultations 08/29/18 03:25 ED Decision to Admit Stat 08/29/18 06:51 Consult Case Management - Discharge Planning Routine 08/29/18 08:00 Consult Pulmonology Routine 09/02/18 09:32 Consult Neurology Routine Procedures Performed Operation Date: 08/31/18 12:30 Actual Procedures p Bronchoscopy Radiology(Bilateral) - Royal Taylor MD Ordered Studies 08/29/18 07:08 CT angio chest PE protocol Stat CT angio chest PE protocol CT DOSE: 329.81 mGy.cm HISTORY: 78 years-old Female with rule out PE and mucous plugging. Acute shortness of breath TECHNIQUE: Multiple CTA images of the chest were obtained after the intravenous administration of 118 ml Optiray 320. Coronal and sagittal MIPS were obtained from the axial data set and were submitted for review. All measurements were obtained according to NASCET criteria. A dose lowering technique was utilized adhering to the principles of ALARA. COMPARISON: Chest radiograph 08/29/2018 FINDINGS: CTA: Mild multichamber cardiac enlargement. No pericardial effusion. Coronary arterial calcifications are noted. Calcifications of the aortic annulus. No thoracic aortic aneurysm or dissection. Moderate mixed plaque formation of the thoracic aorta with patency of the imaged great vessels. The pulmonary arterial tree is opacified to level of the segmental branches. The distal segmental and subsegmental branches are not well seen secondary to respiratory motion artifact. No focal filling defects identified to suggest pulmonary thromboembolic disease. CT CHEST: No focal thyroid nodule or adenopathy by CT size criteria. No definite pneumothorax or pleural effusion. Biapical pleural-parenchymal scarring. Subsegmental consolidation of the lateral segment right middle lobe, inferior segment lingula and posterior basal segment left lower lobe and to a lesser extent within the medial basal segment of the right lower lobe. Respiratory mot ion artifact limits evaluation of the lung parenchyma. No overt pulmonary edema identified. Linear subsegmental atelectasis of the superior segment lingula and superior segment right lower lobe. There are a few scattered 2-3 mm solid nodules noted bilaterally which are likely benign. Mild bilateral mucus plugging. Central airways appear to be patent. Small hiatal hernia. Mild thickening of the adrenal glands suggestive of hyperplasia. No acute process of the imaged upper abdomen. Soft tissues are unremarkable. Bones appear to be intact. Degenerative changes of the shoulders and spine. IMPRESSION: 1. Study limited secondary to respiratory motion. No definite evidence of pulmonary thromboembolic disease. 2. Mild mucous plugging with bibasilar subsegmental consolidation suggestive of probable atelectasis. Pneumonia considered less likely. Correlate clinically. 3. Mild cardiomegaly without overt pulmonary edema or pleural effusion. 4. Small hiatal hernia. Hospital Course (1) ALS (amyotrophic lateral sclerosis): Shortness of breath and hypoxemic on admission Secondary to mucous plugging, inability to clear oropharyngeal secretions, ALS -Patient required oxygen supplementation Placed on antibiotics ceftriaxone and doxycycline for possible component of pneumonia Given nebs every 6 hours Evaluated by pulmonary service, Dr. Taylor - s/p Bronchoscopy with removal of Mucus Plugging 08/31/18 Bronchial Wash cultures:Corynebacterium, not pathogenic -After bronchoscopy, patient was able to be weaned off oxygen - blood cultures: negative -Remained afebrile, no signs of infection at this time Leukocytosis resolved Discussed with pulmonary service Dr. Taylor, does not recommend antibiotics at this point due to negative bronchial washing cultures -Continue good oral suctioning Scopolamine patch ordered to reduce secretions Recommend hospital bed, keep head of the bed up 45 degrees at all times to prevent aspiration Continue aspiration precautions -Follow-up with primary care physician next week Follow-up with neurologist in [facility] Dr. Jerzy Coleman as scheduled September 13, 2018 Follow-up with [facility] anatomical embalmer Dr. Taylor in 2 to 3 weeks Hypertension -on hydrochlorothiazide. - added Amlodipine 5mg po daily BP improving monitor Hypothyroidism -on Synthroid. Depression - on Zoloft. Deep venous thrombosis prophylaxis, SCDs Code Status: Do Not Resuscitate/Do Not Intubate as per patient and her niece Brenda [phone] Disposition Return to personal correction Follow-up: Follow-up with primary care physician next week Follow-up with neurologist in [facility] Dr. Jerzy Coleman as scheduled September 13, 2018 [facility] anatomical embalmer Dr. Taylor in 2 to 3 weeks Total Time Total Time Spent Total Time Spent (In Minutes): 45 minutes Discharge Plan Discharge Items Patient Disposition: Home - Self-Care Reason For Visit: SHORT OF BREATH Discharge Diagnosis: Hypoxia, secondary to mucous plugging Discharge Goals: Diagnostic testing Activity: Resume your previous activity Non-emergency contact: Primary Care Provider Call non-emergency contact if: you have any medication questions, your symptoms worsen and you have a fever Follow-up/Referrals: Shala Porras [place] [Primary Care Provider] - Diet: See below Diet Comment: Continue PEG tube feeding, monitor daily for residuals; aspiration precautions please Addtl Provider Instructions: Continue current oral suctioning. Maintain head of the bed up 45 degrees as part of aspiration precautions. Monitor blood pressure. Follow-up with primary care physician next week, Dr. Amor. The clinic will be calling for the appointment. Follow-up with neurologist in [facility] Dr. Jerzy Coleman as scheduled September 13, 2018. Follow-up with [facility] anatomical embalmer Dr. Taylor in 2 to 3 weeks. Prescriptions: New ipratropium bromide 0.02 % Solution 0.5 mg inhalation Q4H PRN (Reason: Shortness Of Breath Or Wheezing) 30 Days Qty: 25 RF: 2 levalbuterol HCl 0.63 mg/3 mL Solution For Nebulization 0.63 mg NEB Q4H PRN (Reason: Shortness Of Breath Or Wheezing) 30 Days Qty: 30 RF: 2 amlodipine [Norvasc] 5 mg Tablet 5 mg PEG QAM 30 Days Qty: 30 RF: 2 scopolamine base [Transderm-Scop] 1 mg over 3 days Patch 3 Day 1.5 mg transdermal Q72H 30 Days Qty: 10 RF: 2 Continued hydrochlorothiazide 25 mg Tablet 25 mg feeding tube DAILY RF: 0 Nutren 1.5 0.07 gram-1.5 kcal/mL Liquid 1 ea feeding tube UD RF: 0 Zoloft 25 mg 25 mg PEG DAILY RF: 0 levothyroxine 137 mcg 137 mcg PEG DAILY RF: 0 Stand-Alone Forms: [facility] Discharge Orders: Discharge Order (Routine); Ordered 09/03/18 Ordered By: Alli Espinal Admission Data Admit Date/Time: 08/29/18 04:12 Attending Provider: Alli Espinal Admit Provider: Ehsan Rome Primary Care Provider: Shala Porras [place] Other Providers: Ehsan Rome ; Jef Yang ; Segun Whalen ; Shaquille Ho Service: Telemetry Medical
--- NOTE | 2018-09-22 07:49 | Coding Query ---
CODING QUERY To promote full compliance with coding requirements relating to patient care, provider participation is requested in all cases of manager aviation uncertainty. Please assist us with the question(s) below: Coding Question(s): There is documentation of possible component of Pneumonia in the record and on Discharge Summary with mention in the record of possible aspiration. Please clarify below, in your clinical opinion, regarding the possible Pneumonia. ( ) Possible Pneumonia, Unspecified, was treated during this admission ( ) Possible Pneumonia, possible Aspiration Pneumonia, was treated during this admission ( ) Possible Pneumonia, Other type, was treated during this admission: Please specify type ( x ) Pneumonia is ruled-out. There was no possible pneumonia treated during this admission Physician's Response(s): Thank you Yoanna Fregoso Principal Diagnosis: "that condition established after study, to be chiefly responsible for occasioning the admission of the patient to the hospital for care." Co-Existing Principal Diagnosis: "when two or more diagnoses equally meet the criteria for principal diagnosis as determined by the circumstances of admission, diagnostic work up, and/or therapy provided, and the Alphabetic Index, Tabular List, or another coding guideline does not provide sequencing direction, any one of the diagnoses may be sequenced first." "When the physician has documented what appears to be a current diagnosis in the body of the record, but has not included the diagnosis in the final diagnostic statement, the physician should be asked whether the diagnosis should be added." (Source Coding [facility] 2 QTR90. p3-4) PAUL
== END 2018-09-03 18:13 | disposition home or self-care (01) | DRG 202 ==
LOC: ED 01:37 → 2N 04:12 → SUATTDRO 04:12 → 2N 06:24

== ENCOUNTER 2018-09-15 19:00 | Inpatient (IN) ==
[2018-09-15] MEDS ORDERED: ALBUT/IPRATROP 3MG/0.5MG NEB 3 ML VIAL INH STA (19:19)
[2018-09-15 19:38] LABS: Basophils # (auto) 0.03 K/uL (0-0.2); Basophils % (auto) 0.2 %; Eosinophils # (auto) 0.14 K/uL (0-0.5); Eosinophils % (auto) 0.8 %; Hematocrit (blood only) 38.2 % (37-47); Immature Granulocytes # (auto) 0.05 K/uL (0.00-0.02); Immature Granulocytes % (auto) 0.3 %; Lymphocytes % (auto) 4.5 %; Mean Corpuscular Volume 89.9 fL (80-100); Mean Platelet Volume 10.1 fL (7.4-10.4); Monocytes # (auto) 1.53 K/uL (0.11-0.59); Monocytes % (auto) 8.7 %; Neutrophils # (auto) 15.09 K/uL (1.4-6.5); Neutrophils % (auto) 85.5 %; Platelet Count 296 K/uL (130-400); RDW Coefficient of Variation 12.9 % (11.5-14.5); RDW Standard Deviation 42.5 fL (36.4-46.3); Red Blood Count 4.25 M/uL (4.2-5.4); White Blood Count 17.64 K/uL (4.8-10.8)
--- NOTE | 2018-09-15 19:42 | XRay Report ---
XR chest 1V portable HISTORY: 78 years-old Female Dyspnea acute shortness of breath COMPARISON: Chest radiograph 09/13/2018 TECHNIQUE: Portable AP view of the chest FINDINGS: Cardiomediastinal and hilar silhouettes appear unchanged. Persistent left greater than right bibasila r opacities. Calcification of the thoracic aortic arch. No pneumothorax or large pleural effusions. U nchanged blunting of the costophrenic angles may reflect trace effusions. Stable pleural thickening o f the lung apices. Degenerative changes of the shoulders and spine. IMPRESSION: Persistent subsegmental left greater than right bibasilar opacities suggestive of atelect asis or pneumonitis. The above report was generated using voice recognition software. It may contain grammatical, syntax o r spelling errors. Electronically signed by: Greg Wagoner M.D. 09/15/2018 7:41 PM
[2018-09-15 19:55] LABS: Alanine Aminotransferase 26 U/L (12-78); Albumin Level 3.3 gm/dl (3.4-5.0); Aspartate Aminotransferase 18 U/L (15-37); BUN Creatinine Ratio 30.4 (10-20); Blood Urea Nitrogen 17 mg/dl (7-18); Calcium 9.5 mg/dl (8.5-10.1); Carbon Dioxide 32 mmol/L (21-32); Chloride 91 mmol/L (98-107); Est GFR (African American) 104.1; Est GFR (Non-African American) 89.8; Glucose 138 mg/dl (70-99); Potassium 4.1 mmol/L (3.5-5.1); Sodium 129 mmol/L (136-145)
[2018-09-15 19:59] LABS: Albumin Globulin Ratio 0.7 (0.9-2); Alkaline Phosphatase 116 U/L (45-117); Bilirubin,Total 0.4 mg/dl (0.2-1); Globulin 4.4 gm/dl (2.5-4.0); Total Protein 7.7 gm/dl (6.4-8.2); Troponin I < 0.015 ng/ml (0-0.045)
[2018-09-15] MEDS ORDERED: VANCOMYCIN CONSULT ACTIVE PRN (20:49)
[2018-09-15] MEDS ORDERED: PIPERACILLIN/TAZOBACTAM 4.5 GM/120 ML BAG IV ONE (20:49)
[2018-09-15] MEDS ORDERED: VANCOMYCIN HCL 1,000 MG/270 ML BAG IV STA (20:49)
[2018-09-15] MEDS ORDERED: PIPERACILL/TAZOBAC CONSULT ACTIVE PRN ×2 (20:49→22:45)
--- NOTE | 2018-09-15 21:11 | History & Physical Report ---
Date of Service September 15, 2018 Assessment & Plan (1) ALS (amyotrophic lateral sclerosis): Pneumonitis Likely due to mucous plugging secondary to poor cough reflex/inability to clear oral pharyngeal secretions CXR:Persistent subsegmental left greater than right bibasilar opacities suggestive of atelectasis or pneumonitis. S/P bronchoscopy on 08/31/18 Empirically cover with IV antibiotics Check procalcitonin, lactate, blood cultures Aggressive pulmonary hygiene Consider pulmonology evaluation Currently saturating well on room air Oxygen supplementation as needed Bronchodilators ordered Oral suctioning as needed Aspiration precautions ALS (amyotrophic lateral sclerosis):Non verbal at baseline Evaluated by neurology during prior admission Scopolamine patch to decrease secretions Progressive illness and currently no plan for treatment Consider palliative care to address goals of care Continue Tube feeds Hypothyroidism Continue levothyroxine Depression Continue Zoloft Dysphagia S/P PEG HTN: Continue amlodipine Also on hydrochlorothiazide monitor DVT Px: SCDs Disposition: Expect to discharge back to [facility] when stable History of Present Illness Chief Complaint: Shortness of Breath Primary Care Provider: [facility] Patient is a 78 yr female with history of ALS S/P PEG, nonverbal at baseline, hypothyroidism, depression, dysphagia, ambulatory dysfunction and other problems presents from [facility] with history of worsening shortness of breath, inability to clear oropharyngeal secretions. Patient was recently discharged [facility] after being managed for hypoxic anemia secondary to mucous plugging ALS/, and was treated for a possible complaint of pneumonia. Patient underwent bronchoscopy on 08/31/2018 and had negative bronchial wash cultures. Patient patient was started on scopolamine patch at that time which patient stopped using since Wednesday secondary to xerostomia. Patient was evaluated in ED on September 13 and was cleared by pulmonary for discharge with recommendations to arrange for [facility]. Patient was also suggested for possibility of hospice at the time. Patient will receive vancomycin, Zosyn while in ED. Patient had poor cough reflex at baseline. Most of the history is obtained from patient's niece who is the POA as patient is nonverbal at baseline. As per the family, patient was thought to have aspirated her own secretions. She is saturating well on room air while in ED. She was noted to have leukocytosis of 17,000, chronic hyponatremia with a sodium of 129. Chest x-ray suggestive of persistent subsegmental left greater than right bibasilar opacities suggestive of atelectasis or pneumonitis. Allergies Allergy/AdvReac Type Severity Reaction Status Date / Time No Known Allergies Allergy Unverified 09/15/18 20:08 Home Medications Home Medications Medication Instructions Recorded Confirmed Type Nutren 1.5 1 ea FEEDING TUBE UD 08/29/18 09/15/18 History hydrochlorothiazide 25 mg FEEDING TUBE DAILY 08/29/18 09/15/18 History amlodipine [Norvasc] 5 mg PEG QAM 30 Days #30 tab 09/03/18 09/15/18 Rx ipratropium bromide 0.5 mg INHALATION Q4H PRN 30 Days 09/03/18 09/15/18 Rx #25 ml levalbuterol HCl 0.63 mg NEB Q4H PRN 30 Days #30 ml 09/03/18 09/15/18 Rx scopolamine base [Transderm-Scop] 1.5 mg TRANSDERMAL Q72H 30 Days 09/03/18 09/15/18 Rx #10 ea levothyroxine 137 mcg FEEDING TUBE DAILY 09/13/18 09/15/18 History sertraline 25 mg FEEDING TUBE DAILY 09/13/18 09/15/18 History Past Med/Surg History Medical History Hypothyroidism Hypertension ALS (amyotrophic lateral sclerosis) (Acute) Surgical History PEG (percutaneous endoscopic gastrostomy) status PEG tube in place Ankle fracture Cataract Bilateral surgery with lens implant H/O hernia repair History of tonsillectomy and adenoidectomy Family History Other No significant family history Social History Preferred Language: Kittitian Communication Ability: Effective Communication Tools: IPad Beliefs That Will Affect Care: None Current Living Situation: Personal Care Facility Current Living Situation Comment: [facility] Feels Safe at Home: Yes Smoking Status: Former smoker Tobacco Type: cigarettes Age Started Using Tobacco: 26 Age Quit Using Tobacco: 68 Cigarettes Per Day: 3 cigarettes/day Hx Alcohol Use: Yes (A few beers per week) Hx Substance Use: No Review of Systems Review of Systems: All systems reviewed & are unremarkable except as noted in HPI & below Physical Exam Physical Exam: Physical Exam: Vitals signs as noted above General Appearance:Chronic ill appearing, no apparent distress Head: normocephalic, Atraumatic Eyes: normal inspection, EOMI Neck: supple, Trachea midline Respiratory/Chest: Decreased, coarse breath sounds, + poor cough reflex Cardiovascular: S1, S2, + tachycardia, No murmur Abdomen/GI:Soft, Non tender, Bowel sounds present, +PEG Extremities/Musculoskelatal:normal inspection, Trace edema Neurologic/Psych:AAOX3, B/L UE weakness, Non verbal Skin: normal color, warm Results & Data Vital Signs (Past 12 Hours) Vital Signs Temp Pulse Pulse Resp BP Pulse Ox 09/15/18 20:34 92 H 24 164/79 H 09/15/18 20:30 99 H 18 09/15/18 20:00 103 H 24 09/15/18 19:48 111 H 25 H 09/15/18 19:37 94 H 24 93 09/15/18 19:06 36.4 C L 90 22 132/68 92 Laboratory Results Short CBC 09/15/18 Range/Units 19:31 WBC 17.64 H (4.8-10.8) K/uL Hgb 13.0 (12.0-16.0) g/dL Hct 38.2 (37-47) % Plt Count 296 (130-400) K/uL BMP 09/15/18 19:31 Sodium 129 L Potassium 4.1 Chloride 91 L Carbon Dioxide 32 BUN 17 Creatinine 0.55 L Glucose 138 H Calcium 9.5 Cardiac Enzymes 09/15/18 Range/Units 19:31 Troponin I < 0.015 (0-0.045) ng/ml Liver Function 09/15/18 Range/Units 19:31 Total Bilirubin 0.4 (0.2-1) mg/dl AST 18 (15-37) U/L ALT 26 (12-78) U/L Alkaline Phosphatase 116 (45-117) U/L Albumin 3.3 L (3.4-5.0) gm/dl Diagnostic Findings CXR: Persistent subsegmental left greater than right bibasilar opacities suggestive of atelectasis or pneumonitis. ECG Additional Comments: EKG:NSR, Nonspecific ST-T wave changes, QTC:415
[2018-09-15] MEDS ORDERED: LEVALBUTEROL HCL 0.63 MG/3 ML NEB NEB PRN ×2 (22:39)
[2018-09-15] MEDS ORDERED: ACETAMINOPHEN 325 MG TAB PEG PRN (22:39)
[2018-09-15] MEDS ORDERED: ONDANSETRON INJ 2 MG/ML 2 ML VIAL IV PRN (22:39)
[2018-09-15] MEDS: PATIENT'S HEIGHT AND/OR WEIGHT NEEDED SCH ×3 (23:46→23:48)
[2018-09-16] MEDS: SCOPOLAMINE 1.5 MG TDSY TD SCH (00:10)
[2018-09-16 00:19] LABS: Appearance Urine Turbid (Clear); Bacteria Urine Automated Negative (Negative); Bilirubin Urine Negative (Negative); Blood Urine Negative (Negative); Color Urine Yellow; Glucose Urine UA Negative (Negative); Ketones Urine Negative (Negative); Leukocyte Esterase Urine 1+ (Negative); Nitrite Urine Negative (Negative); Protein Urine Negative (Negative); RBC Urine Automated 0-4 /hpf (0-4); Specific Gravity Urine 1.019 (1.000-1.030); Urobilinogen Urine Negative (Negative); pH Urine 8.5 (4.5-7.5)
--- NOTE | 2018-09-16 02:15 | Emergency Department Note ---
Entered by Khurram Fuentes acting as a scribe for ED Provider Note CHIEF COMPLAINT: Shortness of breath HISTORY OF PRESENT ILLNESS: The patient is a 78 year old female who presents to the Emergency Room with complaints of constant shortness of breath that has been persistent for about the past 3 days, per the security developer. The patient's security developer notes that she is very congested and has mucous blockage preventing her from breathing normally. Due to her symptoms the security developer noticed labored breathing so she brought her to the ED. The patient was seen here on 09/13 for the same symptoms and had her nasal passages cleared, but that only helped temporarily. During this visit there was a pulmonary consultation that recommended antibiotics, a cough assist, and a percussion vest. Currently the patient is not on any antibiotic but she is in the process of obtaining a cough assist and percussion vest. The security developer reports that the patient had a bronchoscopy during her last hospitalization done by Dr. Taylor and she has a follow up appointment with his office tomorrow. The security developer also notes that at her home at [facility] she received nebulizer treatments, but they do not help relieve her congestion. The patient also reports feeling more weak as of late. The patient has a feeding tube in place. Pt denies LOC, headache, fevers, chills, diaphoresis, visual changes, neck pain, chest pain, nausea, vomiting, abdominal pain, back pain, melena, hematochezia, urinary symptoms, numbness, lymphadenopathy, rash, or other complaints. REVIEW OF SYSTEMS: See HPI for pertinent positives and negatives. A total of ten systems were reviewed and were otherwise negative. PMHx/PSHx: Atelectasis, Hypothyroidism, Hypoxia, Pneumonia, PEG tube, ALS, Hypertension SOCIAL HISTORY: Patient lives at an assisted living facility. PHYSICAL EXAM: GENERAL: Awake, alert, well-appearing, non verbal, in no distress HENT: Normocephalic, atraumatic. Oropharynx unremarkable. Dry mucous membranes. EYES: Normal conjunctiva. Sclera non-icteric. NECK: Inspection normal. Non-tender. Supple. No nuchal rigidity. FROM. No masses. RESPIRATORY: Clear to auscultation. No wheezes. No rales. Normal respiratory effort. CARDIAC: Normal rate. Normal rhythm. No murmurs. No rubs. Extremities warm and well perfused. Pulses equal. No JVD. GI: Soft, non-distended. No tenderness to palpation. No rebound or guarding. No masses. RECTAL: Deferred. MUSCULOSKELETAL: Atraumatic. Chest examination reveals no tenderness. Contractures of the upper extremities. No joint edema. LOWER EXTREMITIES: Calves are equal size bilaterally and non-tender. Trace lower extremity edema. No discoloration. NEURO: Normal sensorium. No sensory or motor deficits noted. SKIN: No rash or jaundice noted. EMERGENCY DEPARTMENT COURSE: 1914: Past medical records reviewed. The patient was evaluated in room C03, and a complete history and physical examination were performed. The patient's medical records showed that she was seen in the ED on 09/13/18 for mucous plugging of the bronchi. She had a pulmonary consultation where they recommended antibiotics, cough assist, and a percussion vest. 2052: I spoke to Dr. Aranza Del Castillo Hospitalist about the patient's case and he will be accepting her for further evaluation. MEDICAL DECISION MAKING: Triage Nursing notes reviewed and agree them. Additional history obtained from the mother. The patient's history was concerning for flank pain, urinary symptoms, and fever. Differential diagnosis: Etiologies such as UTI, pyelonephritis, renal colic, appendicitis,i nflammatory bowel disease, PUD, biliary pathology, viral syndrome, as well as others were entertained. Physical examination findings: As above. ER treatment provided: Normal saline hydration Oral Tylenol On reassessment the patient felt better. Diagnostic interpretation by me: The labs revealed an increasing leukocytosis compared to prior visit. Mild hyponatremia noted. Chemistry panel otherwise unremarkable. Imaging studies: Chest x-ray concerning for pneumonitis Despite a nebulizer treatment here and suctioning the patient was still congested. She is too weak to cough up and expectorate the sputum. I discussed treatment options. The patient will need further management in the hospital. Consultation: A consultation was placed with the hospitalist. The case was discussed and diagnostics were reviewed. The patient was evaluated in the ER for further treatment. IMPRESSION: Pneumonitis Shortness of breath Generalized weakness ALS PLAN: Admitted as inpatient The scribe's documentation has been prepared under my direction and personally reviewed by me in its entirety. I confirm that the note above accurately reflects all work, treatment, procedures, and medical decision making performed by me. Impression & Plan Pneumonitis, ALS (amyotrophic lateral sclerosis), Shortness of breath, Generalized weakness Past Med/Surg History Medical History Hypothyroidism Hypertension ALS (amyotrophic lateral sclerosis) (Acute) Surgical History PEG (percutaneous endoscopic gastrostomy) status PEG tube in place Ankle fracture Cataract Bilateral surgery with lens implant H/O hernia repair History of tonsillectomy and adenoidectomy Family History Other No significant family history Social History Preferred Language: Panamanian Communication Ability: Effective Communication Tools: IPad Copy Editor Required: No Beliefs That Will Affect Care: None Current Living Situation: Care Home Current Living Situation Comment: [facility] [place] Other Information That Helps Us Care for You: No Feels Safe at Home: Yes Safety Concerns: Feels Safe At This Time Smoking Status: Unknown if ever smoked Hx Alcohol Use: No Hx Substance Use: No Results & Data Vital Signs Vital Signs - 24 hr 09/15/18 19:06 09/15/18 19:37 09/15/18 19:48 Temperature 36.4 C L Temperature Source Axillary Sepsis Recent Fever Within 48 Hours No Sepsis New/Unexplained Change in Mental Status No Sepsis Action Taken by Nursing No Action Required Pulse Rate 90 111 H Pulse Rate [Right Radial] 94 H Respiratory Rate 22 24 25 H Respiratory Effort / Characteristics Non-Labored Spontaneous Blood Pressure 132/68 Blood Pressure Mean 89 Pulse Oximetry 92 93 Oxygen Delivery Method Room Air Room Air 09/15/18 20:00 09/15/18 20:30 09/15/18 20:34 Temperature Temperature Source Sepsis Recent Fever Within 48 Hours Sepsis New/Unexplained Change in Mental Status Sepsis Action Taken by Nursing Pulse Rate 103 H 99 H 92 H Pulse Rate [Right Radial] Respiratory Rate 24 18 24 Respiratory Effort / Characteristics Blood Pressure 164/79 H Blood Pressure Mean 107 Pulse Oximetry Oxygen Delivery Method Home Medications Current Medication List: was personally reviewed by me Laboratory Data Attestation: I reviewed the patient's lab results. Result diagrams: 09/15/18 19:31 09/15/18 19:31 Lab Results 09/15/18 09/15/18 09/15/18 Range/Units 00:05 19:31 19:31 WBC 17.64 H (4.8-10.8) K/uL RBC 4.25 (4.2-5.4) M/uL Hgb 13.0 (12.0-16.0) g/dL Hct 38.2 (37-47) % MCV 89.9 (80-100) fL MCH 30.6 (25-34) pg MCHC 34.0 (32-36) g/dL RDW Std Deviation 42.5 (36.4-46.3) fL RDW Coeff of Gato 12.9 (11.5-14.5) % Plt Count 296 (130-400) K/uL MPV 10.1 (7.4-10.4) fL Immature Gran % (Auto) 0.3 % Neut % (Auto) 85.5 % Lymph % (Auto) 4.5 % [place] % (Auto) 8.7 % Eos % (Auto) 0.8 % Baso % (Auto) 0.2 % Immature Gran # (Auto) 0.05 H (0.00-0.02) K/uL Neut # (Auto) 15.09 H (1.4-6.5) K/uL Lymph # (Auto) 0.80 L (1.2-3.4) K/uL [place] # (Auto) 1.53 H (0.11-0.59) K/uL Eos # (Auto) 0.14 (0-0.5) K/uL Baso # (Auto) 0.03 (0-0.2) K/uL Sodium 129 L (136-145) mmol/L Potassium 4.1 (3.5-5.1) mmol/L Chloride 91 L (98-107) mmol/L Carbon Dioxide 32 (21-32) mmol/L Anion Gap 6.0 (3-11) BUN 17 (7-18) mg/dl Creatinine 0.55 L (0.6-1.2) mg/dl Est Cr Clr Drug Dosing Not Reportable Est GFR ( Amer) 104.1 Est GFR (Non-Af Amer) 89.8 BUN/Creatinine Ratio 30.4 H (10-20) Glucose 138 H (70-99) mg/dl Calcium 9.5 (8.5-10.1) mg/dl Total Bilirubin 0.4 (0.2-1) mg/dl AST 18 (15-37) U/L ALT 26 (12-78) U/L Alkaline Phosphatase 116 (45-117) U/L Troponin I < 0.015 (0-0.045) ng/ml Total Protein 7.7 (6.4-8.2) gm/dl Albumin 3.3 L (3.4-5.0) gm/dl Globulin 4.4 H (2.5-4.0) gm/dl Albumin/Globulin Ratio 0.7 L (0.9-2) Procalcitonin (0-0.5) ng/ml Urine Color Yellow Urine Appearance Turbid A (Clear) Urine pH 8.5 H (4.5-7.5) Ur Specific [place] 1.019 (1.000-1.030) Urine Protein Negative (Negative) Urine Glucose (UA) Negative (Negative) Urine Ketones Negative (Negative) Urine Blood Negative (Negative) Urine Nitrite Negative (Negative) Urine Bilirubin Negative (Negative) Urine Urobilinogen Negative (Negative) Ur Leukocyte Esterase 1+ H (Negative) Urine WBC (Auto) 5-10 H (0-5) /hpf Urine RBC (Auto) 0-4 (0-4) /hpf U Hyaline Cast (Auto) 1-5 (0-5) /lpf U Epithel Cells (Auto) 10-20 H (0-5) /lpf Urine Bacteria (Auto) Negative (Negative) 09/15/18 Range/Units 19:32 WBC (4.8-10.8) K/uL RBC (4.2-5.4) M/uL Hgb (12.0-16.0) g/dL Hct (37-47) % MCV (80-100) fL MCH (25-34) pg MCHC (32-36) g/dL RDW Std Deviation (36.4-46.3) fL RDW Coeff of [place]ato (11.5-14.5) % Plt Count (130-400) K/uL MPV (7.4-10.4) fL Immature Gran % (Auto) % Neut % (Auto) % Lymph % (Auto) % [place] % (Auto) % Eos % (Auto) % Baso % (Auto) % Immature Gran # (Auto) (0.00-0.02) K/uL Neut # (Auto) (1.4-6.5) K/uL Lymph # (Auto) (1.2-3.4) K/uL [place] # (Auto) (0.11-0.59) K/uL Eos # (Auto) (0-0.5) K/uL Baso # (Auto) (0-0.2) K/uL Sodium (136-145) mmol/L Potassium (3.5-5.1) mmol/L Chloride (98-107) mmol/L Carbon Dioxide (21-32) mmol/L Anion Gap (3-11) BUN (7-18) mg/dl Creatinine (0.6-1.2) mg/dl Est Cr Clr Drug Dosing Est GFR ( Amer) Est GFR (Non-Af Amer) BUN/Creatinine Ratio (10-20) Glucose (70-99) mg/dl Calcium (8.5-10.1) mg/dl Total Bilirubin (0.2-1) mg/dl AST (15-37) U/L ALT (12-78) U/L Alkaline Phosphatase (45-117) U/L Troponin I (0-0.045) ng/ml Total Protein (6.4-8.2) gm/dl Albumin (3.4-5.0) gm/dl Globulin (2.5-4.0) gm/dl Albumin/Globulin Ratio (0.9-2) Procalcitonin 0.09 (0-0.5) ng/ml Urine Color Urine Appearance (Clear) Urine pH (4.5-7.5) Ur Specific [place] (1.000-1.030) Urine Protein (Negative) Urine Glucose (UA) (Negative) Urine Ketones (Negative) Urine Blood (Negative) Urine Nitrite (Negative) Urine Bilirubin (Negative) Urine Urobilinogen (Negative) Ur Leukocyte Esterase (Negative) Urine WBC (Auto) (0-5) /hpf Urine RBC (Auto) (0-4) /hpf U Hyaline Cast (Auto) (0-5) /lpf U Epithel Cells (Auto) (0-5) /lpf Urine Bacteria (Auto) (Negative) Administered Medications Scopolamine (Transderm-Scop) 1.5 mg TD Q3D@2100 [facility] Stop: 10/15/18 22:59 Last Admin: 09/16/18 00:10 Dose: Not Given Documented by: [id number] Discontinued Medications Albuterol (Duoneb) 3 ml INH NOW STA Stop: 09/15/18 19:20 Last Admin: 09/15/18 19:35 Dose: 3 ml Documented by: [id number] Piperacillin Sod/Tazobactam Sod (Zosyn) 4.5 gm in 120 mls @ 240 mls/hr IV NOW ONE Stop: 09/15/18 21:18 Last Infusion: 09/15/18 21:52 Dose: 0 mls/hr Documented by: [id number] Admin: 09/15/18 21:17 Dose: 240 mls/hr Documented by: [id number] Vancomycin HCl (Vancomycin Hcl) 1,000 mg in 270 mls @ 125 mls/hr IV NOW STA Stop: 09/15/18 22:58 Last Infusion: 09/16/18 00:03 Dose: 0 mls/hr Documented by: [id number] Admin: 09/15/18 21:52 Dose: 125 mls/hr Documented by: [id number] Miscellaneous (Patient's Height And/Or Weight Needed) 1 ea N/A Q15M [facility] Stop: 09/16/18 00:31 Last Admin: 09/15/18 23:48 Dose: Not Given Documented by: [id number] Admin: 09/15/18 23:48 Dose: Not Given Documented by: [id number] Admin: 09/15/18 23:47 Dose: Not Given Documented by: [id number] Admin: 09/15/18 23:47 Dose: Not Given Documented by: [id number] Admin: 09/15/18 23:46 Dose: Not Given Documented by: [id number] Imaging Data Radiologist's Impression: Radiology results as stated below per my review and the radiologist's interpretation: XR chest 1V portable HISTORY: 78 years-old Female Dyspnea acute shortness of breath COMPARISON: Chest radiograph 09/13/2018 TECHNIQUE: Portable AP view of the chest FINDINGS: Cardiomediastinal and hilar silhouettes appear unchanged. Persistent left greater than right bibasilar opacities. Calcification of the thoracic aortic arch. No pneumothorax or large pleural effusions. Unchanged blunting of the costophrenic angles may reflect trace effusions. Stable pleural thickening of the lung apices. Degenerative changes of the shoulders and spine. IMPRESSION: Persistent subsegmental left greater than right bibasilar opacities suggestive of atelectasis or pneumonitis. The above report was generated using voice recognition software. It may contain grammatical, syntax or spelling errors. Electronically signed by: Greg Wagoner M.D. 09/15/2018 7:41 PM ECG Data Attestation: I personally reviewed and interpreted this ECG as follows: Indication: SOB/dyspnea Rate (beats per minute): 92 Rhythm: normal sinus Findings: + other (Poor baseline data) and + nonspecific-ST abn; no PVC and no ST elevation Blood Pressure Blood Pressure Findings: Normal blood pressure Discharge Plan Visit Data *Final* Discharge Date/Time: 09/15/18 22:23 Chief Complaint: Shortness of Breath/Dyspnea Stated Complaint: ALS - MUCAS CONGESTION & DIFFICULTY BREATHING ED Provider: Shaquille Martinez Discharge Problem: Pneumonitis, ALS (amyotrophic lateral sclerosis), Shortness of breath, Generalized weakness Patient Disposition: Admitted As Inpatient Discharge Instructions Interventions: ED Discharge Assessment Last Done: 09/15/18 22:23 The scribe's documentation has been prepared under my direction and personally reviewed by me in its entirety. I confirm that the note above accurately reflects all work, treatment, procedures, and medical decision making performed by me.
[2018-09-16] MEDS: PIPERACILLIN/TAZOBACTAM 3.375 GM in DEXTROSE 5% 100 ML IV SCH ×3 (02:52→18:06)
[2018-09-16] MEDS: LEVOTHYROXINE SODIUM 137 MCG TABLET PO SCH (06:03)
[2018-09-16 07:08] LABS: Basophils # (auto) 0.05 K/uL (0-0.2); Basophils % (auto) 0.4 %; Eosinophils # (auto) 0.25 K/uL (0-0.5); Eosinophils % (auto) 1.9 %; Hematocrit (blood only) 37.3 % (37-47); Hemoglobin 12.6 g/dL (12.0-16.0); Immature Granulocytes # (auto) 0.04 K/uL (0.00-0.02); Immature Granulocytes % (auto) 0.3 %; Lymphocytes # (auto) 0.86 K/uL (1.2-3.4); Lymphocytes % (auto) 6.7 %; Mean Corpuscular Hgb Conc 33.8 g/dL (32-36); Mean Corpuscular Volume 89.7 fL (80-100); Monocytes # (auto) 0.86 K/uL (0.11-0.59); Monocytes % (auto) 6.7 %; Neutrophils # (auto) 10.83 K/uL (1.4-6.5); Platelet Count 284 K/uL (130-400); RDW Coefficient of Variation 12.8 % (11.5-14.5); RDW Standard Deviation 42.1 fL (36.4-46.3); Red Blood Count 4.16 M/uL (4.2-5.4); White Blood Count 12.89 K/uL (4.8-10.8)
[2018-09-16] MEDS: ALBUT/IPRATROP 3MG/0.5MG NEB 3 ML VIAL NEB SCH ×4 (07:38→19:15)
[2018-09-16 07:48] LABS: BUN Creatinine Ratio 21.2 (10-20); Calcium 9.4 mg/dl (8.5-10.1); Creatinine Clr Calc Pharmacy 69.2 ml/min; Est GFR (African American) 105.4; Est GFR (Non-African American) 90.9; Magnesium 2.3 mg/dl (1.8-2.4)
[2018-09-16] MEDS: AMLODIPINE BESYLATE 5 MG TAB PEG SCH (08:08)
[2018-09-16] MEDS: SERTRALINE HCL 50 MG TABLET PEG SCH (08:08)
[2018-09-16] MEDS: hydroCHLOROthiazide 25 MG TAB PEG SCH (08:09)
[2018-09-16] MEDS: CHECK SCOPOLAMINE PATCH PLACEMENT SCH ×2 (08:09→16:20)
--- NOTE | 2018-09-16 10:19 | Hospitalist Progress Note ---
Date of Service September 16, 2018 Assessment & Plan (1) ALS (amyotrophic lateral sclerosis): Possible Aspiration pneumonitis in setting of ALS with weak to absent ability to clear airway. Likely due to mucous plugging secondary to poor cough reflex/inability to clear oral pharyngeal secretions CXR:Persistent subsegmental left greater than right bibasilar opacities suggestive of atelectasis or pneumonitis. S/P bronchoscopy on 08/31/18 -bronchial wash negative CT chest: 1. Progressive bibasilar parenchymal infiltrates. 2. Slightly progressive peribronchial thickening bilaterally. Off nasal cannula today Continue empiric IV Zosyn Discussed with pulmonary service, recommend Assist device Monitor daily Bronchodilators ordered Oral suctioning as needed Aspiration precautions ALS (amyotrophic lateral sclerosis):Non verbal at baseline Evaluated by neurology during prior admission, no further recommendation at this point Scopolamine patch ordered but patient does not tolerate this Continue Tube feeds Hypothyroidism Continue levothyroxine Depression Continue Zoloft Dysphagia S/P PEG HTN: Continue amlodipine Also on hydrochlorothiazide monitor DVT Px: SCDs Encourage ambulation Disposition: Expect to discharge back to [facility] when stable Subjective Follow-up for possible recurrent aspiration Seen sitting up in bed, comfortable, nondistressed, oriented x3 Off oxygen supplementation Patient reports that she feels improved compared to yesterday Still unable to clear her secretions, has occasional phlegm Eyes fever chills, chest pain, dizziness, nausea Reports arms are slightly weaker compared to before Denies other focal neurologic deficits No other symptoms Review of Systems Review of Systems: All systems reviewed & are unremarkable except as noted in HPI & below Physical Exam Physical Exam: General- oriented x 2, not in distress, breathing with no effort or accessory muscle use Head- atraumatic Eyes- PERRL, EOMI, anicteric ENT- oropharynx clear Neck- supple, no JVD, no adenopathy, no thyromegaly; carotids +2/2, no bruits appreciated Lungs-positive mild rales bilaterally, no wheezing, good air entry bilaterally Heart- normal rate, regular rhythm; no murmur, no gallop, no rub appreciated Abdomen- normal bowel sounds, nondistended, soft, nontender, no masses or hepatosplenomegaly PEG tube in place Extremities- no pretibial edema, no calf tenderness; peripheral pulses intact Neuro- alert, oriented x 3; nonverbal otherwise cranial nerves II to XII grossly intact; motor 5/5 bilaterally;sensation 100% on all extremities; no other gross focal neurologic deficits Skin- warm & dry Results & Data Vital Signs (Past 12 Hours) Vital Signs Temp Pulse Pulse Pulse Resp BP BP 09/16/18 07:39 76 20 09/16/18 07:02 36.5 C 79 18 154/59 H 09/16/18 03:29 36.6 C 86 16 145/76 H 09/16/18 00:00 87 09/15/18 22:35 84 17 184/71 H 09/15/18 22:23 88 19 Pulse Ox Pulse Ox 09/16/18 07:39 94 09/16/18 07:02 92 09/16/18 03:29 93 09/16/18 00:00 09/15/18 22:35 95 95 09/15/18 22:23 95 Laboratory Results Laboratory Results - last 24 hr 09/15/18 09/15/18 09/15/18 00:05 19:31 19:31 WBC 17.64 H RBC 4.25 Hgb 13.0 Hct 38.2 MCV 89.9 MCH 30.6 MCHC 34.0 RDW Std Deviation 42.5 RDW Coeff of Gato 12.9 Plt Count 296 MPV 10.1 Immature Gran % (Auto) 0.3 Neut % (Auto) 85.5 Lymph % (Auto) 4.5 [place] % (Auto) 8.7 Eos % (Auto) 0.8 Baso % (Auto) 0.2 Immature Gran # (Auto) 0.05 H Neut # (Auto) 15.09 H Lymph # (Auto) 0.80 L [place] # (Auto) 1.53 H Eos # (Auto) 0.14 Baso # (Auto) 0.03 Sodium 129 L Potassium 4.1 Chloride 91 L Carbon Dioxide 32 Anion Gap 6.0 BUN 17 Creatinine 0.55 L Est Cr Clr Drug Dosing Not Reportable Est GFR ( Amer) 104.1 Est GFR (Non-Af Amer) 89.8 BUN/Creatinine Ratio 30.4 H Glucose 138 H Lactate Calcium 9.5 Magnesium Total Bilirubin 0.4 AST 18 ALT 26 Alkaline Phosphatase 116 Troponin I < 0.015 Total Protein 7.7 Albumin 3.3 L Globulin 4.4 H Albumin/Globulin Ratio 0.7 L Procalcitonin Urine Color Yellow Urine Appearance Turbid A Urine pH 8.5 H Ur Specific [place] 1.019 Urine Protein Negative Urine Glucose (UA) Negative Urine Ketones Negative Urine Blood Negative Urine Nitrite Negative Urine Bilirubin Negative Urine Urobilinogen Negative Ur Leukocyte Esterase 1+ H Urine WBC (Auto) 5-10 H Urine RBC (Auto) 0-4 U Hyaline Cast (Auto) 1-5 U Epithel Cells (Auto) 10-20 H Urine Bacteria (Auto) Negative Nasal Screen MRSA (PCR) 09/15/18 09/15/18 09/15/18 19:32 22:17 Unknown WBC RBC Hgb Hct MCV MCH MCHC RDW Std Deviation RDW Coeff of [place]ato Plt Count MPV Immature Gran % (Auto) Neut % (Auto) Lymph % (Auto) [place] % (Auto) Eos % (Auto) Baso % (Auto) Immature Gran # (Auto) Neut # (Auto) Lymph # (Auto) [place] # (Auto) Eos # (Auto) Baso # (Auto) Sodium Potassium Chloride Carbon Dioxide Anion Gap BUN Creatinine Est Cr Clr Drug Dosing Est GFR ( Amer) Est GFR (Non-Af Amer) BUN/Creatinine Ratio Glucose Lactate 1.1 Calcium Magnesium Total Bilirubin AST ALT Alkaline Phosphatase Troponin I Total Protein Albumin Globulin Albumin/Globulin Ratio Procalcitonin 0.09 Urine Color Urine Appearance Urine pH Ur Specific [place] Urine Protein Urine Glucose (UA) Urine Ketones Urine Blood Urine Nitrite Urine Bilirubin Urine Urobilinogen Ur Leukocyte Esterase Urine WBC (Auto) Urine RBC (Auto) U Hyaline Cast (Auto) U Epithel Cells (Auto) Urine Bacteria (Auto) Nasal Screen MRSA (PCR) Negative 09/16/18 09/16/18 06:58 06:58 WBC 12.89 H RBC 4.16 L Hgb 12.6 Hct 37.3 MCV 89.7 MCH 30.3 MCHC 33.8 RDW Std Deviation 42.1 RDW Coeff of [place]ato 12.8 Plt Count 284 MPV 10.0 Immature Gran % (Auto) 0.3 Neut % (Auto) 84.0 Lymph % (Auto) 6.7 [place] % (Auto) 6.7 Eos % (Auto) 1.9 Baso % (Auto) 0.4 Immature Gran # (Auto) 0.04 H Neut # (Auto) 10.83 H Lymph # (Auto) 0.86 L [place] # (Auto) 0.86 H Eos # (Auto) 0.25 Baso # (Auto) 0.05 Sodium 129 L Potassium 4.0 Chloride 92 L Carbon Dioxide 31 Anion Gap 6.0 BUN 11 Creatinine 0.53 L Est Cr Clr Drug Dosing 69.2 Est GFR ( Amer) 105.4 Est GFR (Non-Af Amer) 90.9 BUN/Creatinine Ratio 21.2 H Glucose 113 H Lactate Calcium 9.4 Magnesium 2.3 Total Bilirubin AST ALT Alkaline Phosphatase Troponin I Total Protein Albumin Globulin Albumin/Globulin Ratio Procalcitonin Urine Color Urine Appearance Urine pH Ur Specific [place] Urine Protein Urine Glucose (UA) Urine Ketones Urine Blood Urine Nitrite Urine Bilirubin Urine Urobilinogen Ur Leukocyte Esterase Urine WBC (Auto) Urine RBC (Auto) U Hyaline Cast (Auto) U Epithel Cells (Auto) Urine Bacteria (Auto) Nasal Screen MRSA (PCR)
--- NOTE | 2018-09-16 11:47 | CT Scan Report ---
CT chest wo con CT DOSE: 281.73 mGy.cm HISTORY: Pneumonia r/o pneumonia TECHNIQUE: Multiaxial CT images of the chest were performed without contrast. A dose lowering techni que was utilized adhering to the principles of ALARA. COMPARISON: 08/29/2018 FINDINGS: The pulmonary apices are clear. There are findings of progressive left and to a lesser exte nt right basilar infiltrative changes. Slightly progressive right middle lobe infiltrative changes al so noted. Moderate peribronchial thickening is noted throughout. Moderate atherosclerotic changes thoracic aort a. No major mediastinal or hilar adenopathy IMPRESSION: 1. Progressive bibasilar parenchymal infiltrates. 2. Slightly progressive peribronchial thickening bilaterally. The above report was generated using voice recognition software. It may contain grammatical, syntax or spelling errors. Electronically signed by: Dino Ariza M.D. 09/16/2018 11:45 AM
--- NOTE | 2018-09-16 13:02 | Pulmonary Consultation ---
Date of Consultation September 16, 2018 Assessment & Plan (1) Mucus plugging of bronchi: ALS causing neuromuscular weakness with weak cough and poor airway clearance. needs help with airway clearance. cough assist would be the most beneficial. would use the vest as well but if she cannot get the mucus up it will not help flutter valve is likely not going to be useful as she cannot do it with her bulbar weakness no need for bronchoscopy at this time it isnt likely that this is true pneumonia could give abx for 5 days but would narrow coverage would stop scopolamine as she had side effects from this prior and this may make it harder to get her secretions out She does not want to be intubated when her respiratory status worsens and her niece is aware of her wishes. (2) ALS (amyotrophic lateral sclerosis): History of Present Illness Attending Physician: Alli Espinal MD History of Present Illness 78 y/o female with a history of ALS which she has had for 3 years oresenting with shortness of breath and feeling like she is congested and has mucus that she cannot get up. She was in the ED and seen by myself and they were working on getting her a cough assist and vest but she has not recived it yet. She is generally feeling weaker worsening recently. she had side effects from prior use of scopolamine patch with dry mouth Allergies Allergy/AdvReac Type Severity Reaction Status Date / Time No Known Allergies Allergy Unverified 09/15/18 20:08 Home Medications Home Medications Medication Instructions Recorded Confirmed Type Nutren 1.5 1 ea FEEDING TUBE UD 08/29/18 09/15/18 History hydrochlorothiazide 25 mg FEEDING TUBE DAILY 08/29/18 09/15/18 History amlodipine [Norvasc] 5 mg PEG QAM 30 Days #30 tab 09/03/18 09/15/18 Rx ipratropium bromide 0.5 mg INHALATION Q4H PRN 30 Days 09/03/18 09/15/18 Rx #25 ml levalbuterol HCl 0.63 mg NEB Q4H PRN 30 Days #30 ml 09/03/18 09/15/18 Rx scopolamine base [Transderm-Scop] 1.5 mg TRANSDERMAL Q72H 30 Days 09/03/18 09/15/18 Rx #10 ea levothyroxine 137 mcg FEEDING TUBE DAILY 09/13/18 09/15/18 History sertraline 25 mg FEEDING TUBE DAILY 09/13/18 09/15/18 History Patient History Medical History Hypothyroidism Hypertension ALS (amyotrophic lateral sclerosis) (Acute) Surgical History PEG (percutaneous endoscopic gastrostomy) status PEG tube in place Ankle fracture Cataract Bilateral surgery with lens implant H/O hernia repair History of tonsillectomy and adenoidectomy Family History Other No significant family history Social History Preferred Language: Haitian Communication Ability: Effective Communication Tools: IPad Returned Item Clerk Required: No Beliefs That Will Affect Care: None Current Living Situation: Residential Current Living Situation Comment: [facility] Other Information That Helps Us Care for You: No Feels Safe at Home: Yes Safety Concerns: Feels Safe At This Time Smoking Status: Unknown if ever smoked Hx Alcohol Use: No Hx Substance Use: No Review of Systems Review of Systems: Constitutional: no fevers no chills no weight loss Eyes: no blurry or double vision EENT: no sore throat, + congestion Respiratory: + cough + shortness of breath Cardiovascular: no chest pain no palpitations GI: no abdominal pain, no nausea, no vomiting, no diarrhea, no constipation Gu: no dysuria, no frequency MSK: no joint pain, no muscle aches Skin: no rash Neuro: no headache, no dizziness, +diffuse weakness Endocrine: no heat or cold intolerance heme: no easy bruising, no lymphadenopathy Psych: no depression, no anxiety Physical Exam Physical Exam: Constitutional: Comfortable NAD HEENT: normocephalic atraumatic. MMM. no cervical lymphadenopathy CV: RRR nl s1,s2 no murmurs rubs or gallops Lungs: clear to auscultation bilaterally but with upper airway sounds. no accessory muscle use Abd: soft nontender nondistended. normal bowel sounds Ext: no edema. no cyanosis, no clubbing Skin: warm dry Neuro: alert and oriented non verbal but easy communicates effectively. moving all extremities but weak Psych: normal mood and affect Results & Data Vital Signs (Past 12 Hours) Vital Signs Temp Pulse Pulse Resp BP BP Pulse Ox 09/16/18 11:57 36.4 C L 89 20 154/63 H 94 09/16/18 11:03 82 18 95 09/16/18 07:39 76 20 94 09/16/18 07:02 36.5 C 79 18 154/59 H 92 09/16/18 03:29 36.6 C 86 16 145/76 H 93 Laboratory Results Laboratory Results - last 24 hr 09/15/18 09/15/18 09/15/18 00:05 19:31 19:31 WBC 17.64 H RBC 4.25 Hgb 13.0 Hct 38.2 MCV 89.9 MCH 30.6 MCHC 34.0 RDW Std Deviation 42.5 RDW Coeff of [place]ato 12.9 Plt Count 296 MPV 10.1 Immature Gran % (Auto) 0.3 Neut % (Auto) 85.5 Lymph % (Auto) 4.5 [place] % (Auto) 8.7 Eos % (Auto) 0.8 Baso % (Auto) 0.2 Immature Gran # (Auto) 0.05 H Neut # (Auto) 15.09 H Lymph # (Auto) 0.80 L [place] # (Auto) 1.53 H Eos # (Auto) 0.14 Baso # (Auto) 0.03 Sodium 129 L Potassium 4.1 Chloride 91 L Carbon Dioxide 32 Anion Gap 6.0 BUN 17 Creatinine 0.55 L Est Cr Clr Drug Dosing Not Reportable Est GFR ( Amer) 104.1 Est GFR (Non-Af Amer) 89.8 BUN/Creatinine Ratio 30.4 H Glucose 138 H Lactate Calcium 9.5 Magnesium Total Bilirubin 0.4 AST 18 ALT 26 Alkaline Phosphatase 116 Troponin I < 0.015 Total Protein 7.7 Albumin 3.3 L Globulin 4.4 H Albumin/Globulin Ratio 0.7 L Procalcitonin Urine Color Yellow Urine Appearance Turbid A Urine pH 8.5 H Ur Specific [place] 1.019 Urine Protein Negative Urine Glucose (UA) Negative Urine Ketones Negative Urine Blood Negative Urine Nitrite Negative Urine Bilirubin Negative Urine Urobilinogen Negative Ur Leukocyte Esterase 1+ H Urine WBC (Auto) 5-10 H Urine RBC (Auto) 0-4 U Hyaline Cast (Auto) 1-5 U Epithel Cells (Auto) 10-20 H Urine Bacteria (Auto) Negative Nasal Screen MRSA (PCR) 09/15/18 09/15/18 09/15/18 19:32 22:17 Unknown WBC RBC Hgb Hct MCV MCH MCHC RDW Std Deviation RDW Coeff of [place]ato Plt Count MPV Immature Gran % (Auto) Neut % (Auto) Lymph % (Auto) [place] % (Auto) Eos % (Auto) Baso % (Auto) Immature Gran # (Auto) Neut # (Auto) Lymph # (Auto) [place] # (Auto) Eos # (Auto) Baso # (Auto) Sodium Potassium Chloride Carbon Dioxide Anion Gap BUN Creatinine Est Cr Clr Drug Dosing Est GFR ( Amer) Est GFR (Non-Af Amer) BUN/Creatinine Ratio Glucose Lactate 1.1 Calcium Magnesium Total Bilirubin AST ALT Alkaline Phosphatase Troponin I Total Protein Albumin Globulin Albumin/Globulin Ratio Procalcitonin 0.09 Urine Color Urine Appearance Urine pH Ur Specific [place] Urine Protein Urine Glucose (UA) Urine Ketones Urine Blood Urine Nitrite Urine Bilirubin Urine Urobilinogen Ur Leukocyte Esterase Urine WBC (Auto) Urine RBC (Auto) U Hyaline Cast (Auto) U Epithel Cells (Auto) Urine Bacteria (Auto) Nasal Screen MRSA (PCR) Negative 09/16/18 09/16/18 06:58 06:58 WBC 12.89 H RBC 4.16 L Hgb 12.6 Hct 37.3 MCV 89.7 MCH 30.3 MCHC 33.8 RDW Std Deviation 42.1 RDW Coeff of [place] 12.8 Plt Count 284 MPV 10.0 Immature Gran % (Auto) 0.3 Neut % (Auto) 84.0 Lymph % (Auto) 6.7 [place] % (Auto) 6.7 Eos % (Auto) 1.9 Baso % (Auto) 0.4 Immature Gran # (Auto) 0.04 H Neut # (Auto) 10.83 H Lymph # (Auto) 0.86 L [place] # (Auto) 0.86 H Eos # (Auto) 0.25 Baso # (Auto) 0.05 Sodium 129 L Potassium 4.0 Chloride 92 L Carbon Dioxide 31 Anion Gap 6.0 BUN 11 Creatinine 0.53 L Est Cr Clr Drug Dosing 69.2 Est GFR ( Amer) 105.4 Est GFR (Non-Af Amer) 90.9 BUN/Creatinine Ratio 21.2 H Glucose 113 H Lactate Calcium 9.4 Magnesium 2.3 Total Bilirubin AST ALT Alkaline Phosphatase Troponin I Total Protein Albumin Globulin Albumin/Globulin Ratio Procalcitonin Urine Color Urine Appearance Urine pH Ur Specific [place] Urine Protein Urine Glucose (UA) Urine Ketones Urine Blood Urine Nitrite Urine Bilirubin Urine Urobilinogen Ur Leukocyte Esterase Urine WBC (Auto) Urine RBC (Auto) U Hyaline Cast (Auto) U Epithel Cells (Auto) Urine Bacteria (Auto) Nasal Screen MRSA (PCR) Diagnostic Findings CT chest wo con CT DOSE: 281.73 mGy.cm HISTORY: Pneumonia r/o pneumonia TECHNIQUE: Multiaxial CT images of the chest were performed without contrast. A dose lowering technique was utilized adhering to the principles of ALARA. COMPARISON: 08/29/2018 FINDINGS: The pulmonary apices are clear. There are findings of progressive left and to a lesser extent right basilar infiltrative changes. Slightly progressive right middle lobe infiltrative changes also noted. Moderate peribronchial thickening is noted throughout. Moderate atherosclerotic changes thoracic aorta. No major mediastinal or hilar adenopathy IMPRESSION: 1. Progressive bibasilar parenchymal infiltrates. 2. Slightly progressive peribronchial thickening bilaterally. The above report was generated using voice recognition software. It may contain grammatical, syntax or spelling errors. Electronically signed by: Dino Ariza M.D. 09/16/2018 11:45 AM
[2018-09-17] MEDS: CHECK SCOPOLAMINE PATCH PLACEMENT SCH ×3 (00:43→15:06)
[2018-09-17] MEDS: PIPERACILLIN/TAZOBACTAM 3.375 GM in DEXTROSE 5% 100 ML IV SCH ×2 (02:21→10:14)
[2018-09-17] MEDS: LEVOTHYROXINE SODIUM 137 MCG TABLET PO SCH (05:19)
[2018-09-17] MEDS: ALBUT/IPRATROP 3MG/0.5MG NEB 3 ML VIAL NEB SCH ×4 (07:02→20:53)
[2018-09-17] MEDS: SERTRALINE HCL 50 MG TABLET PEG SCH (07:23)
[2018-09-17] MEDS: AMLODIPINE BESYLATE 5 MG TAB PEG SCH (07:23)
[2018-09-17] MEDS: hydroCHLOROthiazide 25 MG TAB PEG SCH (07:24)
--- NOTE | 2018-09-17 10:17 | Pulmonology Progress Note ---
Date of Service September 17, 2018 Assessment & Plan (1) Mucus plugging of bronchi: ALS causing neuromuscular weakness with weak cough and poor airway clearance. needs help with airway clearance. cough assist would be the most beneficial. would use the vest as well but if she cannot get the mucus up it will not help ideally if we could start the cough assist in hospital prior to discharge but I am not sure that is possible over weekend it isnt likely that this is true pneumonia could give abx for 5 days but would narrow coverage would stop scopolamine as she had side effects from this prior and this may make it harder to get her secretions out She does not want to be intubated when her respiratory status worsens and her niece is aware of her wishes. (2) ALS (amyotrophic lateral sclerosis): Subjective breathing improving Physical Exam Physical Exam: Constitutional: Comfortable NAD HEENT: normocephalic atraumatic. MMM CV: RRR nl s1,s2 no murmurs rubs or gallops Lungs: clear to auscultation bilaterally. no accessory muscle use Abd: soft nontender nondistended. Ext: no edema. no cyanosis, no clubbing Skin: warm dry Neuro: alert and oriented . moving all extremities but weak Psych: normal mood and affect Results & Data Vital Signs (Past 12 Hours) Vital Signs Temp Pulse Resp BP BP Pulse Ox 09/17/18 08:00 36.4 C L 76 18 111/63 93 09/17/18 07:12 36.3 C L 80 19 112/82 99 09/17/18 07:04 77 18 94 09/17/18 04:17 36.5 C 76 20 137/77 94 09/16/18 23:42 36.8 C 88 24 150/62 H 94
[2018-09-17] MEDS: AMOXICILLIN/CLAVULANATE 875 MG TAB PO SCH (17:00)
--- NOTE | 2018-09-17 17:13 | Hospitalist Progress Note ---
Date of Service September 17, 2018 Assessment & Plan (1) ALS (amyotrophic lateral sclerosis): Possible Aspiration pneumonitis in setting of ALS with weak to absent ability to clear airway. Likely due to mucous plugging secondary to poor cough reflex/inability to clear oral pharyngeal secretions CXR:Persistent subsegmental left greater than right bibasilar opacities suggestive of atelectasis or pneumonitis. S/P bronchoscopy on 08/31/18 -bronchial wash negative CT chest: 1. Progressive bibasilar parenchymal infiltrates. 2. Slightly progressive peribronchial thickening bilaterally. Patient on room air today with good O2 saturations IV Zosyn narrowed to Augmentin and doxycycline, will need total of 5 days of biotics CoughAssist device recommended by pulmonary service, shante with nurse outreach case manager, request to deliver equipment to the hospital tomorrow, will observe how patient tolerates the CoughAssist device Scopolamine restarted Bronchodilators ordered Oral suctioning as needed Aspiration precautions ALS (amyotrophic lateral sclerosis):Non verbal at baseline Evaluated by neurology during prior admission, no further recommendation at this point Continue Tube feeds Hypothyroidism Continue levothyroxine Depression Continue Zoloft Dysphagia S/P PEG HTN: Blood pressure under good control Continue amlodipine Also on hydrochlorothiazide monitor DVT Px: SCDs Encourage ambulation Disposition: Expect to discharge back to [facility] tomorrow if patient remains stable Subjective Follow-up for possible aspiration pneumonia, in the setting of ALS Seen resting in bed, sitting up, comfortable, in good spirits States she feels better today Less secretions, less coughing, no active shortness of breath Denies chest pain, palpitations, dizziness, nausea vomiting No other symptoms Review of Systems Review of Systems: All systems reviewed & are unremarkable except as noted in HPI & below Physical Exam Physical Exam: General- oriented x 3, not in distress, breathing with no effort or accessory muscle use Eyes- anicteric Neck- no JVD Lungs- clear breath sounds bilaterally, no crackles, no wheezing bilaterally Heart- normal rate, regular rhythm; no murmurs Abdomen- normal bowel sounds, nondistended, soft, nontender PEG tube site: No signs of infection, no issues Extremities- no pretibial edema, no calf tenderness Neuro- alert, oriented x 3; no new gross focal neurologic deficits Skin- warm & dry Results & Data Vital Signs (Past 12 Hours) Vital Signs Temp Pulse Pulse Resp BP BP Pulse Ox 09/17/18 15:32 36.6 C 80 18 126/61 97 09/17/18 15:19 74 18 94 09/17/18 11:58 35.9 C L 78 18 123/66 93 09/17/18 10:38 09/17/18 10:34 77 09/17/18 08:00 36.4 C L 76 18 111/63 93 09/17/18 07:12 36.3 C L 80 19 112/82 99 09/17/18 07:04 77 18 94 Pulse Ox 09/17/18 15:32 09/17/18 15:19 09/17/18 11:58 09/17/18 10:38 93 09/17/18 10:34 09/17/18 08:00 09/17/18 07:12 09/17/18 07:04
[2018-09-17] MEDS: DOXYCYCLINE HYCLATE 100 MG CAP PO SCH (21:20)
[2018-09-17] MEDS: SCOPOLAMINE 1.5 MG TDSY TD SCH (21:20)
[2018-09-18] MEDS: LEVOTHYROXINE SODIUM 137 MCG TABLET PO SCH (05:25)
[2018-09-18] MEDS: ALBUT/IPRATROP 3MG/0.5MG NEB 3 ML VIAL NEB SCH ×4 (07:01→19:28)
[2018-09-18] MEDS: DOXYCYCLINE HYCLATE 100 MG CAP PO SCH ×2 (08:00→20:45)
[2018-09-18] MEDS: SERTRALINE HCL 50 MG TABLET PEG SCH (08:00)
[2018-09-18] MEDS: AMLODIPINE BESYLATE 5 MG TAB PEG SCH (08:01)
[2018-09-18] MEDS: hydroCHLOROthiazide 25 MG TAB PEG SCH (08:02)
[2018-09-18] MEDS: CHECK SCOPOLAMINE PATCH PLACEMENT SCH ×2 (08:02)
[2018-09-18] MEDS: AMOXICILLIN/CLAVULANATE 875 MG TAB PO SCH ×3 (08:02→20:43)
--- NOTE | 2018-09-18 13:35 | Hospitalist Progress Note ---
Date of Service September 18, 2018 Assessment & Plan (1) ALS (amyotrophic lateral sclerosis): Possible Aspiration pneumonitis in setting of ALS with weak to absent ability to clear airway. Likely due to mucous plugging secondary to poor cough reflex/inability to clear oral pharyngeal secretions CXR:Persistent subsegmental left greater than right bibasilar opacities suggestive of atelectasis or pneumonitis. S/P bronchoscopy on 08/31/18 -bronchial wash negative CT chest: 1. Progressive bibasilar parenchymal infiltrates. 2. Slightly progressive peribronchial thickening bilaterally. reMains on room air, O2 saturation was 90% IV Zosyn narrowed to Augmentin and doxycycline, will need total of 5 days of biotics CoughAssist device recommended by pulmonary service, delivered today, patient comfortable with using it Scopolamine restarted, but patient not tolerating secondary to severe dryness of the throat, oral mucosa, resulting to discomfort and pain Bronchodilators ordered Oral suctioning as needed Aspiration precautions Discussed with patient and her niece in detail yesterday, the would like to have palliative care service consulted for goals of care ALS (amyotrophic lateral sclerosis):Non verbal at baseline Evaluated by neurology during prior admission, no further recommendation at this point Continue Tube feeds Hypothyroidism Continue levothyroxine Depression Continue Zoloft Dysphagia S/P PEG HTN: Blood pressure under good control Continue amlodipine Also on hydrochlorothiazide monitor DVT Px: SCDs Encourage ambulation Disposition: Expect to discharge back to [facility] tomorrow if patient remains stable, after discussion with positive care service Subjective Follow-up for possible aspiration pneumonia, ALS Seen sitting up in bed, comfortable Cough assist device delivered today, patient has been using since this morning, states she is comfortable using the CoughAssist device Seems to be helping overall , so far although with not much sputum expectorated Continues to report severe dryness of the throat and oral mucosa with a scopolamine patch, requesting for this to be discontinued Denies other symptoms Review of Systems Review of Systems: All systems reviewed & are unremarkable except as noted in HPI & below Physical Exam Physical Exam: General- oriented x 3, not in distress, breathing with no effort or accessory muscle use Eyes- anicteric Neck- no JVD Lungs- clear breath sounds bilaterally, no crackles or wheezing on auscultation Heart- normal rate, regular rhythm; no murmurs Abdomen- normal bowel sounds, nondistended, soft, nontender PEG tube in place: No issues Extremities- no pretibial edema, no calf tenderness Neuro- alert, oriented x 3; nonverbal, weakness of the upper extremities, No other new gross focal neurologic deficits Skin- warm & dry Results & Data Vital Signs (Past 12 Hours) Vital Signs Temp Pulse Pulse Resp BP Pulse Ox Pulse Ox 09/18/18 11:17 36.4 C L 84 22 124/53 L 93 09/18/18 08:00 36.3 C L 74 80 18 100/54 L 93 93 09/18/18 07:01 77 18 95 09/18/18 03:22 36.4 C L 78 19 123/43 L 96 Laboratory Results All noted and reviewed
[2018-09-19] MEDS: LEVOTHYROXINE SODIUM 137 MCG TABLET PO SCH (05:59)
[2018-09-19] MEDS: ALBUT/IPRATROP 3MG/0.5MG NEB 3 ML VIAL NEB SCH ×3 (07:23→15:40)
[2018-09-19] MEDS: hydroCHLOROthiazide 25 MG TAB PEG SCH (08:14)
[2018-09-19] MEDS: SERTRALINE HCL 50 MG TABLET PEG SCH (08:14)
[2018-09-19] MEDS: AMLODIPINE BESYLATE 5 MG TAB PEG SCH (08:14)
[2018-09-19] MEDS: DOXYCYCLINE HYCLATE 100 MG CAP PO SCH (08:14)
--- NOTE | 2018-09-19 09:43 | Pulmonology Progress Note ---
Date of Service September 19, 2018 Assessment & Plan (1) Mucus plugging of bronchi: ALS causing neuromuscular weakness with weak cough and poor airway clearance. needs help with airway clearance. cough assist and vest doing well with cough assist. she feels like it is helping complete 5 days abx She does not want to be intubated when her respiratory status worsens and her niece is aware of her wishes. (2) ALS (amyotrophic lateral sclerosis): Subjective feeling better feels like the cough assist is working well says her breathing is close to normal Physical Exam Physical Exam: Constitutional: Comfortable NAD HEENT: normocephalic atraumatic. MMM CV: RRR nl s1,s2 no murmurs rubs or gallops Lungs: clear to auscultation bilaterally. no accessory muscle use Abd: soft nontender nondistended. Ext: no edema. no cyanosis, no clubbing Skin: warm dry Neuro: alert and oriented . moving all extremities but weak Psych: normal mood and affect Results & Data Vital Signs (Past 12 Hours) Vital Signs Temp Pulse Resp BP Pulse Ox 09/19/18 07:28 78 18 95 09/19/18 06:55 36.5 C 75 19 127/62 94 09/19/18 02:17 36.4 C L 73 20 145/69 H 95 09/18/18 23:32 36.5 C 78 18 117/63 97
--- NOTE | 2018-09-19 14:55 | Palliative Care Consultation ---
Date of Consultation September 19, 2018 Assessment & Plan (1) Goals of care, counseling/discussion: -78 year old female patient with PMH ALS with PEG tube and tube feedings, nonverbal at baseline, hypothyroidism, depression, dysphagia, ambulatory dysfunction and other problems, presented from [facility] with history of worsening shortness of breath, inability to clear oropharyngeal secretions. Patient was recently discharged from [facility] after being treated for hypoxic anemia secondary to mucous plugging, ALS, and possible pneumonia. Patient underwent bronchoscopy on 08/31/2018 and had negative bronchial wash cultures. Patient was started on scopolamine patch at that time which was stopped due to c/o dry mouth and throat. Patient was evaluated in ED on September 13 for c/o inability to clear secretions, and was cleared by pulmonary for discharge with recommendations to arrange for CoughAssist. Patient was also suggested for possibility of hospice at the time, but she was uncertain. She is now admitted to telemetry unit being treated for mucous plugging and possible pneumonia. She was again trialed on scopolamine patch during this admission, but it was discontinued due to c/o dry mouth and throat soreness. Per documentation, patient is having increased weakness and difficulty managing her bolus feedings QID at the personal long-term. Her ALS is more of a bulbar presentation, which has progressed to the point of being nonverbal and unable to manage secretions or swallow, however she still ambulates and has gross motor function. Patient was even driving up until last hospital stay. Palliative care is now consulted at the request of the patient and niece/POA to discuss goals of care. -Met with patient this morning in room 244. SHe is awake, alert and oriented. Able to communicate well with her electronic tablet. She gave me permission to call her niece/POA, Brenda Mayo, to set up family meeting to discuss GOC. -Spoke with Brenda on the phone at length. She stated that the goal is to keep patient in personal care/assisted living level of care, but she is unsure at this point if they can meet the patient's needs. Patient does her own tube feedings four times a day with flushes before and after. She also now has a cough assist machine that patient will need to be able to operate on her own. Meeting scheduled for 1514. -Family meeting with patient, Celia Peraza from case management, niece/POA Brenda Colese, and myself. -Discussed patient's wishes in regards to her progressive disease. Patient is clear that she does NOT want any life prolonging or heroic measures to prolong her life. She is at peace with dying and is not afraid. Patient does not want to continue to come to the hospital for the same complaints. -She is aware that her functional level will continue to decline, and we talked about how ALS progresses over time. Patient agrees that she can no longer drive, but she does want to continue to try to maintain her level of function. -If patient is able to continue her feedings on her own, she would like to return to assisted living at [facility]. If now, she is agreeable to transitioning to shelter at [facility] and see if she is able to improve and go back to assisted living, or stay in skilled if needed. Her niece agrees with plan. -POLST form was completed as follows: DNR, comfort measures only, abx with comfort as the goal, and continue tube feedings until patient/family make decision to stop them. Niheidi Gutierrez is POA/surrogate decision maker. -It is difficult to say during our one encounter whether or not patient is going to be immediately appropriate for hospice care. I would not be surprised if she in the next six months if we allow her disease to progress naturally and not intervene; especially if the mucous plugging continues. However, she is still functional and continues to be fed via PEG tube. Either way, I would get hospice involved right away as patient does not want to return to the hospital. THey can either sign her up now if they deem her appropriate, or be readily available for when things do get worse/disease progresses. We discussed this at length. (2) ALS (amyotrophic lateral sclerosis): (3) Pneumonitis: (4) Mucus plugging of bronchi: (5) PEG (percutaneous endoscopic gastrostomy) status: Supervising Physician Co-Signing Physician Notes Chart reviewed, patient seen and examined-patient's niece, ABDON Vera and case management at bedside Collaborated with ABDON Liang prior and after after visit. I was personally present during the majority of the second visit to discuss details of goals of care. PE: Patient awake and alert, no acute distress HEENT: EOMI, hearing within normal limits. Increased oral secretions Respiratory unlabored CV: Appears well perfused Abdomen: Not distended Extremities: Limited range of motion , weakness Neuro: Alert and oriented x4, nonverbal-uses communication pad Agree with above note, assessment and plan as per ABDON Liang. Able to discuss details of patient's wishes with niece present. POLST form completed Will continue to follow and assist both patient and niece with medical decision making History of Present Illness Reason for Consultation: Goals of care Requesting Physician: Dr. Espinal Attending Physician: Alli Espinal MD History of Present Illness This 78 year old female patient with PMH ALS with PEG tube and tube feedings, nonverbal at baseline, hypothyroidism, depression, dysphagia, ambulatory dysfunction and other problems, presented from [facility] living with history of worsening shortness of breath, inability to clear oropharyngeal secretions. Patient was recently discharged from [facility] after being treated for hypoxic anemia secondary to mucous plugging, ALS, and possible pneumonia. Patient underwent bronchoscopy on 08/31/2018 and had negative bronchial wash cultures. Patient was started on scopolamine patch at that time which was stopped due to c/o dry mouth and throat. Patient was evaluated in ED on September 13 for c/o inability to clear secretions, and was cleared by pulmonary for discharge with recommendations to arrange for CoughAssist. Patient was also suggested for possibility of hospice at the time, but she was uncertain. She is now admitted to telemetry unit being treated for mucous plugging and possible pneumonia. She was again trialed on scopolamine patch during this admission, but it was discontinued due to c/o dry mouth and throat soreness. Per documentation, patient is having increased weakness and difficulty managing her bolus feedings QID at the personal long-term. Her ALS is more of a bulbar presentation, which has progressed to the point of being nonver bal and unable to manage secretions or swallow, however she still ambulates and has gross motor function. Patient was even driving up until last hospital stay. Palliative care is now consulted at the request of the patient and niece/POA to discuss goals of care. Thank you kindly for this consult. I will follow as needed. Allergies Allergy/AdvReac Type Severity Reaction Status Date / Time No Known Allergies Allergy Unverified 09/15/18 20:08 Home Medications Home Medications Medication Instructions Recorded Confirmed Type Nutren 1.5 1 ea FEEDING TUBE UD 08/29/18 09/15/18 History hydrochlorothiazide 25 mg FEEDING TUBE DAILY 08/29/18 09/15/18 History amlodipine [Norvasc] 5 mg PEG QAM 30 Days #30 tab 09/03/18 09/15/18 Rx ipratropium bromide 0.5 mg INHALATION Q4H PRN 30 Days 09/03/18 09/15/18 Rx #25 ml levalbuterol HCl 0.63 mg NEB Q4H PRN 30 Days #30 ml 09/03/18 09/15/18 Rx scopolamine base [Transderm-Scop] 1.5 mg TRANSDERMAL Q72H 30 Days 09/03/18 09/15/18 Rx #10 ea levothyroxine 137 mcg FEEDING TUBE DAILY 09/13/18 09/15/18 History sertraline 25 mg FEEDING TUBE DAILY 09/13/18 09/15/18 History Patient History Medical History Hypothyroidism Hypertension ALS (amyotrophic lateral sclerosis) (Acute) Surgical History PEG (percutaneous endoscopic gastrostomy) status PEG tube in place Ankle fracture Cataract Bilateral surgery with lens implant H/O hernia repair History of tonsillectomy and adenoidectomy Family History Other No significant family history Social History Preferred Language: Swedish Communication Ability: Effective Communication Tools: IPad Gear Grinder Required: No Beliefs That Will Affect Care: None Current Living Situation: Shelter Current Living Situation Comment: [facility] Other Information That Helps Us Care for You: No Feels Safe at Home: Yes Safety Concerns: Feels Safe At This Time Smoking Status: Unknown if ever smoked Hx Alcohol Use: No Hx Substance Use: No Review of Systems Constitutional: as per Subjective / HPI and + weakness Ear, Nose, Mouth, Throat: tracheal and oropharyngeal secretions Respiratory: + cough and + dyspnea on exertion Cardiovascular: no chest pain and no edema Gastrointestinal: no abdominal pain and no nausea Musculoskeletal: + muscle weakness (ALS) no pain Neurologic: no confusion Psychiatric: no depression and no anxiety Physical Exam Constitutional: average body habitus; no acute distress Eyes: PERRL ENMT: Ears: + hearing impairment ([place]) Neck: normal visual inspection Respiratory: normal respiratory effort, lungs clear to auscultation Cardiovascular: RRR, no murmur, no edema Gastrointestinal (Abdomen): normal bowel sounds, soft, nontender, no hepatosplenomegaly Skin: no rashes, warm and dry Neurologic: moves all extremities and awake decreased dexterity and final motor skills, some atrophy of hands 2/2 ALS. Nonverbal at baseline. Psychiatric: A+Ox3, euthymic affect Results & Data Vital Signs (Past 12 Hours) Vital Signs Temp Pulse Resp BP Pulse Ox 09/19/18 11:23 74 18 95 09/19/18 10:55 36.5 C 81 18 112/57 L 94 09/19/18 07:28 78 18 95 09/19/18 06:55 36.5 C 75 19 127/62 94 PG Care Time/CCT Total # of Minutes Spent Total Time Spent with Patient: Total time spent is greater than 50% in coordination of care (as documented) at patient's floor/unit and/or counseling patient: Prolonged Care Time Prolonged Care Time: Yes Total Prolonged Care Time: 145 Time Spent Midlevel 145 minutes with >50% of the time spent at bedside with patient and family, as well as IDT, during multiple visits to the room and phone calls, discussing condition, GOC, EOL issues, POLST form, hospice, and plan of care.
[2018-09-19] MEDS: AMOXICILLIN/CLAVULANATE 875 MG TAB PO SCH (16:43)
--- NOTE | 2018-09-19 17:38 | Hospitalist Progress Note ---
Date of Service September 19, 2018 Assessment & Plan (1) ALS (amyotrophic lateral sclerosis): Possible Aspiration pneumonitis in setting of ALS with weak to absent ability to clear airway. Likely due to mucous plugging secondary to poor cough reflex/inability to clear oral pharyngeal secretions CXR:Persistent subsegmental left greater than right bibasilar opacities suggestive of atelectasis or pneumonitis. S/P bronchoscopy on 08/31/18 -bronchial wash negative CT chest: 1. Progressive bibasilar parenchymal infiltrates. 2. Slightly progressive peribronchial thickening bilaterally. Patient remained on room air, O2 saturation above 90% IV Zosyn narrowed to Augmentin and doxycycline, will need total of 5 days of anti-biotics Prescriptions written for 3 tablets of each CoughAssist device recommended by pulmonary service, delivered while in hospital, patient comfortable with using it Scopolamine restarted, but patient not tolerating secondary to severe dryness of the throat, oral mucosa, resulting to discomfort and pain Bronchodilators ordered Oral suctioning as needed Aspiration precautions Discussed with patient and her niece in detail yesterday, the would like to have palliative care service consulted for goals of care Palliative care service has met with the patient, recommendations: "-POLST form was completed as follows: DNR, comfort measures only, abx with comfort as the goal, and continue tube feedings until patient/family make decision to stop them. Niece Brenda is POA/surrogate decision maker. -It is difficult to say during our one encounter whether or not patient is going to be immediately appropriate for hospice care. I would not be surprised if she in the next six months if we allow her disease to progress naturally and not intervene; especially if the mucous plugging continues. However, she is still functional and continues to be fed via PEG tube. Either way, I would get hospice involved right away as patient does not want to return to the hospital. THey can either sign her up now if they deem her appropriate, or be readily available for when things do get worse/disease progresses. We discussed this at length." ALS (amyotrophic lateral sclerosis Non verbal at baseline Evaluated by neurology during prior admission, no further recommendation at this point Continue Tube feeds Hypothyroidism Continue levothyroxine Depression Continue Zoloft Dysphagia S/P PEG HTN: Blood pressure under good control Continue amlodipine Also on hydrochlorothiazide monitor DVT Px: SCDs Encourage ambulation Disposition: Return to [facility] today Follow-up with primary care physician Dr. Amor on Thursday, September 27, 2018 at 2:45 PM Subjective Follow-up for aspiration pneumonia Seen resting in bed, comfortable, in good spirits Denies shortness of breath, increased secretions today Comfortable with using the CoughAssist device, and suctioning device Denies other symptoms States she is ready and would like to be discharged today Review of Systems Review of Systems: All systems reviewed & are unremarkable except as noted in HPI & below Physical Exam Physical Exam: General- oriented x 3, not in distress, breathing with no effort or accessory muscle use Eyes- anicteric Neck- no JVD Lungs- clear breath sounds bilaterally, no crackles, no wheezing noted on auscultation Heart- normal rate, regular rhythm; no murmurs Abdomen- normal bowel sounds, nondistended, soft, nontender PEG tube-no signs of infection or other issues Extremities- no pretibial edema, no calf tenderness Neuro- alert, oriented x 3; no other new gross focal deficits Skin- warm & dry Results & Data Vital Signs (Past 12 Hours) Vital Signs Temp Pulse Resp BP Pulse Ox 09/19/18 15:00 36.8 C 90 18 129/87 100 09/19/18 11:23 74 18 95 09/19/18 10:55 36.5 C 81 18 112/57 L 94 09/19/18 07:28 78 18 95 09/19/18 06:55 36.5 C 75 19 127/62 94
--- NOTE | 2018-09-19 17:40 | Discharge Summary ---
Date of Service September 19, 2018 Admission HPI Per Admitting Provider Patient is a 78 yr female with history of ALS S/P PEG, nonverbal at baseline, hypothyroidism, depression, dysphagia, ambulatory dysfunction and other problems presents from [facility] with history of worsening shortness of breath, inability to clear oropharyngeal secretions. Patient was recently discharged [facility] after being managed for hypoxic anemia secondary to mucous plugging ALS/, and was treated for a possible complaint of pneumonia. Patient underwent bronchoscopy on 08/31/2018 and had negative bronchial wash cultures. Patient patient was started on scopolamine patch at that time which patient stopped using since Wednesday secondary to xerostomia. Patient was evaluated in ED on September 13 and was cleared by pulmonary for discharge with recommendations to arrange for CoughAssist. Patient was also suggested for possibility of hospice at the time. Patient will receive vancomycin, Zosyn while in ED. Patient had poor cough reflex at baseline. Most of the history is obtained from patient's niece who is the POA as patient is nonverbal at baseline. As per the family, patient was thought to have aspirated her own secretions. She is saturating well on room air while in ED. She was noted to have leukocytosis of 17,000, chronic hyponatremia with a sodium of 129. Chest x-ray suggestive of persistent subsegmental left greater than right bibasilar opacities suggestive of atelectasis or pneumonitis. Admission Exam Per Admitting Provider Physical Exam: Vitals signs as noted above General Appearance:Chronic ill appearing, no apparent distress Head: normocephalic, Atraumatic Eyes: normal inspection, EOMI Neck: supple, Trachea midline Respiratory/Chest: Decreased, coarse breath sounds, + poor cough reflex Cardiovascular: S1, S2, + tachycardia, No murmur Abdomen/GI:Soft, Non tender, Bowel sounds present, +PEG Extremities/Musculoskelatal:normal inspection, Trace edema Neurologic/Psych:AAOX3, B/L UE weakness, Non verbal Skin: normal color, warm Principal Diagnosis POSSIBLE RECURRENCE OF ASPIRATION PNEUMONIA, IN THE SETTING OF ALS, ABILITY TO CLEAR ORAL SECRETIONS Discharge Exam General- oriented x 3, not in distress, breathing with no effort or accessory muscle use Eyes- anicteric Neck- no JVD Lungs- clear breath sounds bilaterally, no crackles, no wheezing noted on auscultation Heart- normal rate, regular rhythm; no murmurs Abdomen- normal bowel sounds, nondistended, soft, nontender PEG tube-no signs of infection or other issues Extremities- no pretibial edema, no calf tenderness Neuro- alert, oriented x 3; no other new gross focal deficits Skin- warm & dry Discharge Data Allergies Allergy/AdvReac Type Severity Reaction Status Date / Time No Known Allergies Allergy Unverified 09/15/18 20:08 Consultations 09/15/18 20:50 ED Decision to Admit Stat 09/15/18 22:39 Consult Case Management - Discharge Planning Routine 09/16/18 10:18 Consult Pulmonology Routine 09/18/18 16:31 Consult Palliative Care Routine Ordered Studies 09/16/18 10:18 CT chest wo con Routine CT chest wo con CT DOSE: 281.73 mGy.cm HISTORY: Pneumonia r/o pneumonia TECHNIQUE: Multiaxial CT images of the chest were performed without contrast. A dose lowering technique was utilized adhering to the principles of ALARA. COMPARISON: 08/29/2018 FINDINGS: The pulmonary apices are clear. There are findings of progressive left and to a lesser extent right basilar infiltrative changes. Slightly progressive right middle lobe infiltrative changes also noted. Moderate peribronchial thickening is noted throughout. Moderate atherosclerotic changes thoracic aorta. No major mediastinal or hilar adenopathy IMPRESSION: 1. Progressive bibasilar parenchymal infiltrates. 2. Slightly progressive peribronchial thickening bilaterally. Hospital Course (1) ALS (amyotrophic lateral sclerosis): Possible Aspiration pneumonitis in setting of ALS with weak to absent ability to clear airway. CXR:Persistent subsegmental left greater than right bibasilar opacities suggestive of atelectasis or pneumonitis. S/P bronchoscopy on 08/31/18 -bronchial wash negative CT chest: 1. Progressive bibasilar parenchymal infiltrates. 2. Slightly progressive peribronchial thickening bilaterally. Patient remained on room air, O2 saturation above 90% IV Zosyn narrowed to Augmentin and doxycycline, will need total of 5 days of anti-biotics Prescriptions written for 3 tablets of each CoughAssist device recommended by pulmonary service, delivered while in hospital, patient comfortable with using it Scopolamine restarted, but patient not tolerating secondary to severe dryness of the throat, oral mucosa, resulting to discomfort and pain Bronchodilators ordered Oral suctioning as needed Aspiration precautions Discussed with patient and her niece in detail yesterday, the would like to have palliative care service consulted for goals of care Palliative care service has met with the patient, recommendations: "-POLST form was completed as follows: DNR, comfort measures only, abx with comfort as the goal, and continue tube feedings until patient/family make decision to stop them. Adalid Gutierrez is POA/surrogate decision maker. -It is difficult to say during our one encounter whether or not patient is going to be immediately appropriate for hospice care. I would not be surprised if she in the next six months if we allow her disease to progress naturally and not intervene; especially if the mucous plugging continues. However, she is still functional and continues to be fed via PEG tube. Either way, I would get hospice involved right away as patient does not want to return to the hospital. THey can either sign her up now if they deem her appropriate, or be readily available for when things do get worse/disease progresses. We discussed this at length." ALS (amyotrophic lateral sclerosis Non verbal at baseline Evaluated by neurology during prior admission, no further recommendation at this point Continue Tube feeds Hypothyroidism Continue levothyroxine Depression Continue Zoloft Dysphagia S/P PEG HTN: Blood pressure under good control Continue amlodipine Also on hydrochlorothiazide monitor Disposition: Return to [facility] today Follow-up with primary care physician Dr. Amor on Thursday, September 27, 2018 at 2:45 PM Total Time Total Time Spent Total Time Spent (In Minutes): 45 minutes Discharge Plan Discharge Items Patient Disposition: Personal Intermediate Reason For Visit: SHORTNESS OF BREATH Discharge Diagnosis: POSSIBLE RECURRENCE OF ASPIRATION PNEUMONIA, IN THE SETTING OF ALS, INABILITY TO CLEAR ORAL SECRETIONS Discharge Goals: Diagnostic testing Activity: Resume your previous activity Lifting: Wait until after follow-up appointment Exercise/Sports: Wait until after follow-up appointment Driving/Machine Use Comment: NO DRIVING Non-emergency contact: Primary Care Provider Call non-emergency contact if: you have any medication questions, your symptoms worsen and you have a fever Follow-up/Referrals: Jc Amor, [Family Provider] - 09/27/18 2:45 pm Diet: See below Diet Comment: N.p.o., continue tube feedings Addtl Provider Instructions: Use cough assist device at least 3-4 times a day and as needed. Continue oral suctioning of secretions. Please refer to hospital discharge summary for further details. Prescriptions: New amoxicillin-pot clavulanate 875-125 mg tablet 1 tab feeding tube BID Qty: 3 RF: 0 doxycycline hyclate 100 mg tablet 100 mg feeding tube BID 2 Days Qty: 4 RF: 0 Continued hydrochlorothiazide 25 mg Tablet 25 mg feeding tube DAILY RF: 0 Nutren 1.5 0.07 gram-1.5 kcal/mL Liquid 1 ea feeding tube UD RF: 0 ipratropium bromide 0.02 % Solution 0.5 mg inhalation Q4H PRN (Reason: Shortness Of Breath Or Wheezing) 30 Days Qty: 25 RF: 2 levalbuterol HCl 0.63 mg/3 mL Solution For Nebulization 0.63 mg NEB Q4H PRN (Reason: Shortness Of Breath Or Wheezing) 30 Days Qty: 30 RF: 2 amlodipine [Norvasc] 5 mg Tablet 5 mg PEG QAM 30 Days Qty: 30 RF: 2 levothyroxine 137 mcg Tablet 137 mcg feeding tube DAILY RF: 0 sertraline 25 mg Tablet 25 mg feeding tube DAILY RF: 0 Discontinued scopolamine base [Transderm-Scop] 1 mg over 3 days Patch 3 Day 1.5 mg transdermal Q72H 30 Days Qty: 10 RF: 2 Stand-Alone Forms: [facility] Discharge Orders: Discharge Order (Routine); Ordered 09/19/18 Ordered By: Alli Espinal Admission Data Admit Date/Time: 09/15/18 21:47 Attending Provider: Alli Espinal Admit Provider: Jean Houston Primary Care Provider: Shala Porras [place] Other Providers: Jef Cobian ; Genaro Arroyo ; Norah Yen Service: Telemetry
== END 2018-09-19 18:50 | disposition home or self-care (01) | DRG 178 ==
LOC: ED 19:00 → 2S 21:47